=== PATIENT | female | born 2000 | race African-American/Black ===

== ENCOUNTER → 2021-06-28 12:39 | Outpatient (CLI) | payer OTHER, SELFPAY ==
--- NOTE | 2021-06-28 12:42 | DI.US.S_ITS ---
PROCEDURE: US OB <= 14 WEEKS FETUS INDICATIONS: DATING. LMP 04/20/21. OUTSIDE/PRIOR DATING DATA: Last menstrual period (LMP): 04/20/2021 LMP-based estimated date of delivery (AMY): 01/25/2022. First dating scan (date and location): 06/28/2021. Estimated date of delivery (AMY) from first dating scan: 01/26/2022. The calculations are made using the ultrasound AMY of 01/26/2022. TECHNIQUE: Real-time scanning was performed of the fetus and maternal pelvic organs, with image documentation. Endovaginal scanning was also performed to better visualize the fetus and maternal ovaries. COMPARISON: None. FINDINGS: Embryo: 2.9 cm crown-rump length corresponding to 9 weeks 5 days. Small perigestational sac bleed site measuring 1.2 x 1.0 x 1.6 cm. Complex heterogeneous left ovarian mass suspicious for a dermoid measuring up to 2.3 cm. Follow-up recommended. Heart rate: 163 Maternal organs: Complex heterogeneous mass present involving the left ovary suspicious for an ovarian dermoid measuring 2.3 x 1.3 x 1.2 cm. Small right corpus luteal cyst. IMPRESSION: 1. 9 week 5 day single living IUP. 2. Complex heterogeneous left ovarian mass suspicious for dermoid measuring up to 2.3 cm. Continued sonographic surveillance is recommended. We strive to produce accurate, complete, and clear reports of imaging services. To assist us in improving patient care, this report was composed using standard report templates and voice recognition software. Therefore, it may contain abnormal punctuation, insertions and/or omissions. Occasional wrong-word or sound-alike substitutions may occur. Though we review the report and make efforts to correct it, we do recommend that the report be read carefully in proper context to recognize any text inaccuracies. Dictated by: Ananda Rosario RRJim Interpreted: Henri Krishnamurthy MD on 06/29/2021 at 10:50 Transcribed by: JESSICA on 06/29/2021 at 10:53 Approved by: Henri Krishnamurthy M.D. on 06/29/2021 at 11:33
[2021-06-28 13:57] LABS: Appearance Urine UA CLEAR; Bilirubin Urine UA NEGATIVE (NEGATIVE); Color Urine UA YELLOW; Glucose Urine UA NEGATIVE (Negative); Ketones Urine UA NEGATIVE (NEGATIVE); Leukocyte Esterase Urine UA TRACE (NEGATIVE); Nitrite Urine UA NEGATIVE (Negative); Occult Blood Urine UA NEGATIVE (Negative); Protein Urine UA NEGATIVE (Negative); Specific Gravity Urine UA 1.015 (1.000-1.035); Urobilinogen Urine UA 0.2 E.U./dL (0.2)
[2021-06-28 13:58] LABS: Add Manual Diff / Slide Review NO; Basophils Absolute Auto 100 /uL (0-100); Basophils Percent Auto 0.6 % (0-2); Eosinophils Absolute Auto 200 /uL (0-450); Eosinophils Percent Auto 1.7 % (2-4); Hematocrit 38.2 % (36-46); Hemoglobin 12.5 g/dL (12.0-16.0); Lymphocytes Absolute Auto 3000 /uL (1100-4500); Lymphocytes Percent Auto 27.4 % (25-40); Mean Corpuscular HGB Conc 32.8 % (30-36); Mean Corpuscular Hemoglobin 27.1 PG (26-34); Mean Corpuscular Volume 82.5 fL (80-100); Monocytes Absolute Auto 900 /uL (0-900); Monocytes Percent Auto 7.8 % (3-14); Neutrophils Absolute Auto 6900 /uL (1500-7000); Neutrophils Percent Auto 62.5 % (50-75); Platelet Count 252 X10^3/uL (150-400); Red Blood Cell Count 4.63 X10^6/uL (4.0-5.2); Red Cell Distribution Width 18.6 % (11.6-14.8)
[2021-06-28 14:15] LABS: Amorphous Sediment Urine 1+; Bacteria Urine Occasional (0-1); RBC Urine None Seen (0-5/HPF); Squamous Epithelial Cell Urine 5-10 /HPF (0-5/HPF); WBC Urine 5-10/HPF (0-5/HPF)
[2021-06-28 15:27] LABS: Hepatitis B Surface Antigen NEGATIVE s/c (NEGATIVE)
[2021-06-28 15:37] LABS: HIV 1 & 2 Ab/Ag 4th Gen Combo NEGATIVE (NEGATIVE); Hep C Virus Ab w/Reflex Quant NEGATIVE s/c (NEGATIVE)
[2021-06-29 07:15] LABS: Varicella IgG Antibody 2304 index (Immune >165)
[2021-06-29 07:36] LABS: RPR Screen Non Reactive (Non Reactive)
== END ==
PROVIDERS: Referring Provider Family Medicine; Visit Provider Family Medicine
DX: O99.891 Other specified diseases and conditions complicating pregnancy (principal); N83.9 Noninflammatory disorder of ovary, fallopian tube and broad ligament, unspecified; Z3A.09 9 weeks gestation of pregnancy; Z36.87 Encounter for antenatal screening for uncertain dates
CPT/HCPCS: 36415; 76801; 76817; 80055; 81003; 81015; 86787; 86803; 86850; 86900; 86901; 87086; 87389

== ENCOUNTER → 2021-08-24 17:01 | Outpatient (CLI) | payer OTHER, SELFPAY ==
[2021-08-27 14:08] LABS: AFP, Serum 26.5 ng/mL (.); Calc Gestational Age Ultrasound (.); Estriol, Free 1.25 ng/mL (.); Inhibin A, Dimeric 89.95 pg/mL (.); Inhibin A, MoM 0.69 (.); Maternal Ethnicity Black (.); Maternal Weight 208 lbs (.); Number of Fetuses No (.); OSBR Risk 1 IN 10000 (.); Results Report (.); Test Results *Screen Negative* (.); hCG, Serum 9543 mIU/mL (.)
== END ==
PROVIDERS: Referring Provider Family Medicine; Visit Provider Family Medicine
DX: Z34.90 Encounter for supervision of normal pregnancy, unspecified, unspecified trimester (principal)
CPT/HCPCS: 36415; 82105; 82677; 84702; 86336

== ENCOUNTER → 2021-11-06 14:51 | Outpatient (CLI) | payer OTHER, SELFPAY ==
[2021-11-06 16:51] LABS: GTT (PREG) 1 Hour PP 50gm Dose 127 mg/dL (76-139)
== END ==
PROVIDERS: Referring Provider Family Medicine; Visit Provider Family Medicine
DX: Z34.92 Encounter for supervision of normal pregnancy, unspecified, second trimester (principal); Z3A.26 26 weeks gestation of pregnancy
CPT/HCPCS: 82950

== ENCOUNTER → 2021-12-26 16:50 | Outpatient (CLI) | payer OTHER, SELFPAY ==
[2021-12-27 13:21] LABS: Strep Grp B PCR NEG for Grp B Strep
== END ==
PROVIDERS: Visit Provider Obstetrics & Gynecology
DX: Z34.03 Encounter for supervision of normal first pregnancy, third trimester (principal); Z3A.36 36 weeks gestation of pregnancy
CPT/HCPCS: 87653

== ENCOUNTER 2022-01-09 07:59 | Inpatient (IN) | payer OTHER, SELFPAY ==
--- NOTE | 2022-01-09 08:51 | P.HPOB_ITS ---
OB HPI Date/Time Date of admission: 01/09/22 Date Patient Seen: 01/09/22 Time Patient Seen: 08:51 History of Present Condition Chief complaint: Spontaneous rupture membranes : 1 Para: 0 Estimated Date of Delivery: 01/26/22 Estimated Gestational Age (weeks): 37 Narrative: Ce Campos is a 21 year old female with spontaneous rupture membranes at 7:00 a.m. with some bleeding. History of Present care: good care, initiated at week # (10), number of visits (8) and pounds weight gain (46) Dating criteria: LMP confirmed by 1st trimester US Ultrasounds: normal mid trimester US Obstetrical complications: none Medical complications: none Preadmission Labs Blood type: O (+) positive -: Antibody screen: negative, GBS status: negative, HBsAG: negative, HIV: n egative and RPR/VDLR: negative -: Chlamydia screen: not detected and Gonorrhea screen: not detected -: Rubella: immune and Varicella: immune HCAB: negative Quad screen: Normal 1 hr GTT: 127 Evaluation Evaluation Baseline heart rate: 135 Variability: Moderate (11-25) monitor accelerations: Present Monitor Decelerations: Absent Contraction Frequency (minutes): 5 Uterine Contraction Intensity: Mild Category of Tracing: Reactive Status: Category l Dilation (cm): 1 Effacement (%): 50 station: -3 [facility] Medical History Anemia (~1998) Irregular heart beat Painful menstrual periods delivery (maternal condition) Recurrent UTI (~2019) Surgical History [place] teeth extracted Family History Mother Loud snoring Hypertension Father No problems noted. Grandmother Stillbirth of single fetus Hypertension Grandfather Diabetes mellitus Heart disease Grandmother Family history unknown Grandfather Family history unknown Sister Irregular heart beat Scoliosis Social History marital status: unmarried,living together number of children: 0 household members: spouse lives independently: Yes caregiver/support person: No pets and animals: No education level: college occupational status: employed current occupational exposures/hazards: No milvia/catholic: Denominational special milvia needs: No seatbelt use: always do you feel safe at home: Yes Smoking Status: Former smoker Tobacco: How many years used: 1 second hand exposure: No alcohol intake: former substance use type: does not use during the past year weight has: increased > 10 lbs well-balanced diet: about half the time daily servings fruits/ve-1 caffeine: No frequency: does not exercise Meds Home Medications and Allergies Home Medications Medication Instructions Recorded Confirmed Type prenat.vits,jonathan,upg-pyon-fngnw 1 tab PO DAILY 06/27/21 01/09/22 History hzigugudaq-zquzwvqiuwegx-jqoetjng 1 cap PO BID PRN headac #10 caps 11/16/21 01/09/22 Rx 50 mg-300 mg-40 mg capsule (Fioricet) metronidazole 0.75 % vaginal gel 1 appful vaginal BEDTIME 5 days 12/26/21 01/09/22 Rx #70 grams Allergies Allergy/AdvReac Type Severity Reaction Status Date / Time Penicillins Allergy Mild hives Verified 01/09/22 10:07 Review of Systems Review of Systems Narrative: Patient denies headaches, scotomata, epigastric pain. Spontaneous rupture membranes at 7:00 a.m.. Light vaginal bleeding. Good movement. Some mild back pain. OB Exam Narrative Exam Narrative: Patient initial blood pressure 156/94, repeat 150/75, pulse of 82, temperature 36.5? HEENT exam within normal limits. Lungs are clear to auscultation and pe rcussion. Heart is regular rate and rhythm no S3-S4 murmurs. Abdomen is gravid. Fetus is vertex. Extremities without edema and nontender. Objective Labs Result Diagrams: 01/09/22 09:15 01/09/22 09:15 Assessment and Plan Assessment and Plan Assessment and Plan narrative: 37 week 4 day with spontaneous rupture membranes. If contractions do not begin in the next few hours will start Pitocin augmentation. Anticipate vaginal delivery. Time Spent with Patient Total time spent with greater than 50% in coordination of care (as documented) at patient's floor/unit and/or counseling patient:: less than 15 minutes
[2022-01-09 09:19] LABS: Add Manual Diff / Slide Review NO; Basophils Absolute Auto 100 /uL (0-100); Basophils Percent Auto 0.5 % (0-2); Eosinophils Absolute Auto 200 /uL (0-450); Eosinophils Percent Auto 2.5 % (2-4); Hematocrit 38.2 % (36-46); Hemoglobin 12.8 g/dL (12.0-16.0); Lymphocytes Absolute Auto 2700 /uL (1100-4500); Lymphocytes Percent Auto 28.3 % (25-40); Mean Corpuscular HGB Conc 33.6 % (30-36); Mean Corpuscular Hemoglobin 29.2 PG (26-34); Mean Corpuscular Volume 86.6 fL (80-100); Monocytes Absolute Auto 1000 /uL (0-900); Monocytes Percent Auto 10.3 % (3-14); Neutrophils Absolute Auto 5700 /uL (1500-7000); Neutrophils Percent Auto 58.4 % (50-75); Platelet Count 201 X10^3/uL (150-400); Red Blood Cell Count 4.41 X10^6/uL (4.0-5.2); Red Cell Distribution Width 14.1 % (11.6-14.8); White Blood Cell Count 9.7 X10^3/uL (4.5-11.0)
[2022-01-09 09:31] LABS: Aspartate Aminotransferase 28 IU/L (14-36); BUN Creatinine Ratio 20.8 (6-22); Blood Urea Nitrogen 11 mg/dL (7-17); Estimated Glomerular Filt Rate > 60 mL/min (>60); Uric Acid 3.6 mg/dL (2.5-6.2)
[2022-01-09 09:32] LABS: COVID19 -Nasal RAPID Negative (Negative)
[2022-01-09 10:16] VITALS: BP 150/75
--- NOTE | 2022-01-09 12:21 | PM.OBPNLAB ---
Date/Time Date Patient Seen: 01/09/22 Time Patient Seen: 12:22 Pain Control Pain control: tolerating well Pelvic Exam Effacement (%): 50 station: -3 Amniotic membrane status: Ruptured Contractions Contractions on admission: irregular Monitor mode: External Contraction pattern: Irregular Contraction intensity: Mild Status status: Category l Heart Rate Baseline: 140 Monitor Accelerations: Present Monitor Decelerations: Absent Monitor Variability: Moderate Assessment and Plan Plan: begin patient augmentation Comments: Patient with rupture membranes for over 4 hours without onset of labor. Will begin Pitocin augmentation. After initial blood pressure readings elevated the subsequent blood pressures 150/75 and 151/80. PIH labs were negative.
[2022-01-09] MEDS: LACTATED RINGERS 1,000 ML 100 ML IV (13:15)
[2022-01-09] MEDS: OXYTOCIN PREMIX 30 UNIT/500 ML PLAST..BAG IV (13:16)
[2022-01-09 14:49] LABS: Protein (Total) Urine Random 35 mg/dL (0-12)
[2022-01-09] MEDS: FENT 2MCG/ML BUPIV 0.125% EPI 200 MCG/100 ML PLAST..BAG 12 MCG EPIDURAL (17:31)
[2022-01-09] MEDS: diphenhydrAMINE 50 MG/ML VIAL 25 MG IV (20:22)
--- NOTE | 2022-01-10 00:36 | PM.OBPNLAB ---
Date/Time Date Patient Seen: 01/10/22 Time Patient Seen: 00:36 Pain Control Pain control: epidural Pelvic Exam Dilation (cm): 7 Effacement (%): 100 station: -1 Amniotic membrane status: Ruptured Contractions Contractions on admission: regular Monitor mode: Internal Pitocin rate (mU/min): 3 Contraction frequency (min): 3 Contraction duration (min): 1 Contraction pattern: Regular Contraction intensity: Strong/Firm Intrauterine tone measurement: 50 Status status: Category ll Heart Rate Baseline: 150 Monitor Accelerations: Present Monitor Decelerations: Early Monitor Variability: Minimal Assessment and Plan Assessment: induction ongoing Comments: Internal toco and scalp electrode placed. Significant progress in the last hour.
[2022-01-10] MEDS: LIDOCAINE 2% INJ MDV 20 ML (03:42)
--- NOTE | 2022-01-10 04:23 | P.PCNOB_ITS ---
Events: Labor Augmentation and Premature Rupture Membrane Labor & Delivery Delivery date: 01/10/22 Intrapartal Events: Extended Tachycardia Delivery augmentation: pitocin Delivery monitor: external FHT, external uterine, internal FHT and internal uterine Route of delivery: vacuum extraction Indication for instrumentation: nonreassuring FHR tracing L&D Laceration Description: Perineal - 3rd Degree Delivery repair: vicryl (2-0) and chromic (3-0) Estimated blood loss (mL): 900 Anesthesia Type: Epidural Narrative: Patient arrived on Labor and delivery after spontaneous rupture membranes. She did not go into labor so she was started on Pitocin. She received an epidural catheter for pain control. heart tones category 1 to category 2 throughout labor. With pushing the fetus was having tachycardia and late decel erations. Mother had exhaustion. Decision was made to proceed with vacuum extraction. The vacuum was placed for a total of 2 contractions with delivery of the viable male . There was a 2 minute shoulder dystocia. The dystocia was relieved with corkscrew maneuver. The infant was placed on maternal abdomen. After the cord stopped pulsating the cord was clamped, cut, and cord bloods obtained. The placenta delivered spontaneously, intact, with 3 vessels. Patient with shunt was found to have a partial third-degree tear which was repaired with 0 Vicryl suture deep and yjmgdi-mr-poulo sutures reapproximating the rectal sphincter. The rest of the repair was done with 3-0 chromic suture in the usual 2 layer fashion. Estimated blood loss 900 cc. Bleeding was from the tear rather than uterine atony. Both mother doing well. [place] Baby 1: gender: Male Presentation: vertex Position: Left Occiput Anterior Placenta delivery description: Spontaneous Cord Vessel Description: 3 Vessels score (1 min): 5 score (5 min): 8 score (10 min): 9 weight: 9 lb 5 oz Plan for aftercare: Routine care
[2022-01-10] MEDS: LACTATED RINGERS 1,000 ML 100 ML IV (08:04)
[2022-01-10] MEDS: DERMOPLAST SPRAY 20% 60 ML 1 SPRAY TOP (08:13)
[2022-01-10] MEDS: LANOLIN OINT 7 GM 1 APPLIC TOP ×2 (08:14→19:45)
[2022-01-10] MEDS: DOCUSATE 100 MG CAPSULE PO ×2 (12:22→19:44)
[2022-01-10 12:25] VITALS: TEMP 36.8
[2022-01-10] MEDS: ACETAMINOPHEN 325 MG TABLET 650 MG PO ×2 (12:25→19:29)
[2022-01-11] MEDS: ACETAMINOPHEN 325 MG TABLET 650 MG PO ×3 (00:26→16:14)
[2022-01-11 06:11] LABS: Add Manual Diff / Slide Review NO; Basophils Absolute Auto 100 /uL (0-100); Basophils Percent Auto 0.4 % (0-2); Eosinophils Absolute Auto 200 /uL (0-450); Eosinophils Percent Auto 1.2 % (2-4); Hematocrit 27.6 % (36-46); Hemoglobin 9.2 g/dL (12.0-16.0); Lymphocytes Absolute Auto 4100 /uL (1100-4500); Lymphocytes Percent Auto 20.6 % (25-40); Mean Corpuscular HGB Conc 33.3 % (30-36); Mean Corpuscular Volume 87.2 fL (80-100); Monocytes Absolute Auto 1600 /uL (0-900); Monocytes Percent Auto 8.1 % (3-14); Neutrophils Absolute Auto 13900 /uL (1500-7000); Neutrophils Percent Auto 69.7 % (50-75); Platelet Count 153 X10^3/uL (150-400); Red Blood Cell Count 3.17 X10^6/uL (4.0-5.2); Red Cell Distribution Width 14.6 % (11.6-14.8); White Blood Cell Count 19.9 X10^3/uL (4.5-11.0)
[2022-01-11 08:28] VITALS: TEMP 36.5
[2022-01-11] MEDS: IBUPROFEN 600 MG TABLET PO ×2 (08:28→16:15)
[2022-01-11 08:29] VITALS: TEMP 36.5
[2022-01-11] MEDS: DOCUSATE 100 MG CAPSULE PO ×2 (08:30→20:30)
--- NOTE | 2022-01-11 14:41 | P.PNOB_ITS ---
Subjective - OB Subjective Patient comments: no complaints and pain well controlled (Perineal discomfort overall controlled, just more sore when she is directly sitting on the area.) [place] baby status: doing well [place] feeding status: exclusively breast feeding Date Patient Seen: 01/11/22 Time Patient Seen: 14:56 Exam Vital Signs (past 8 hours): - 01/11/22 08:28 01/11/22 08:29 Temperature 97.7 F 97.7 F Narrative Exam Narrative: General: ?Well-appearing female Abdomen: ?Soft, nontender, nondistended. ?Fundus at U, firm, nontender Extremities: ?1+ bilateral pedal edema. No calf tenderness Const General: cooperative, healthy appearing and comfortable Objective Labs Result Diagrams: 01/11/22 05:58 01/09/22 09:15 Labs: Laboratory Results - last 24 hr 01/11/22 05:58 WBC 19.9 H D RBC 3.17 L Hgb 9.2 L Hct 27.6 L MCV 87.2 MCH 29.0 MCHC 33.3 RDW 14.6 Plt Count 153 Neut % (Auto) 69.7 Lymph % (Auto) 20.6 L [place] % (Auto) 8.1 Eos % (Auto) 1.2 L Baso % (Auto) 0.4 Neut # (Auto) 70029 H Lymph # (Auto) 4100 [place] # (Auto) 1600 H Eos # (Auto) 200 Baso # (Auto) 100 Assessment & Plan Plan day: 1 plan OB: routine care Time Spent With Patient Time: Total time spent is greater than 50% in coordination of care (as documented) at patient's floor/unit and/or counseling patient: Time with patient: less than 15 minutes
[2022-01-11 16:14] VITALS: TEMP 37
[2022-01-11 16:15] VITALS: TEMP 37
[2022-01-11] MEDS: OXYCODONE IR 5 MG TABLET PO (19:51)
[2022-01-12] MEDS: OXYCODONE IR 5 MG TABLET PO ×3 (00:19→13:27)
[2022-01-12] MEDS: IBUPROFEN 600 MG TABLET PO (09:13)
[2022-01-12] MEDS: DOCUSATE 100 MG CAPSULE PO (09:13)
--- NOTE | 2022-01-12 11:47 | PM.OBPN.1 ---
Subjective - OB Subjective Patient comments: no complaints, pain well controlled (Perineal discomfort from third-degree perineal discomfort controlled with ice packs, ibuprofen and rare oxycodone use. ) and other (Lochia normal. Breast feeding and supplementing to maintain baby's blood sugar. Her breast milk is coming in well.) Date Patient Seen: 01/12/22 Time Patient Seen: 11:58 Exam Vital Signs (past 8 hours): Temp 97.5F, BP 130/72, pulse 95, RR 16 Narrative Exam Narrative: General: ?Well-appearing female Abdomen: ?Soft, nontender, nondistended. ?Fundus U-1, firm, nontender Extremities: ?1+ pedal edema, right mildly more than left side, both decreasing per patient from prior to delivery. No calf tenderness. Objective Labs Result Diagrams: 01/11/22 05:58 01/09/22 09:15 Assessment & Plan Plan day: 2 plan OB: discharge home and follow up 6 weeks Comments: Routine instructions reviewed. Signs and symptoms of depression discussed, and to call as needed prior to 6 week visit. Time Spent With Patient Time: Total time spent is greater than 50% in coordination of care (as documented) at patient's floor/unit and/or counseling patient: Time with patient: less than 15 minutes
[2022-01-12 12:57] VITALS: BP 130/72; PULSE 96; RESP 16; TEMP 36.4
== END 2022-01-12 15:55 | disposition home or self-care (01) | DRG 768 ==
PROVIDERS: Admitting Provider Specialist; Referring Provider Specialist; Visit Provider Specialist
DX: O42.02 Full-term premature rupture of membranes, onset of labor within 24 hours of rupture (principal); Z37.0 Single live birth; O70.20 Third degree perineal laceration during delivery, unspecified; Z3A.37 37 weeks gestation of pregnancy; O76 Abnormality in fetal heart rate and rhythm complicating labor and delivery; O66.0 Obstructed labor due to shoulder dystocia; Z20.822 Contact with and (suspected) exposure to COVID-19
CPT/HCPCS: 01967; 36415; 59050; 59400; 59409; 82570; 84112; 84156; 84450; 84550; 85025; 86850; 86900; 86901; 87635; C9803; G0379; J1200; J2590

== ENCOUNTER 2023-05-26 17:10 | Emergency (ER) | payer OTHER, SELFPAY ==
[2023-05-26 17:33] VITALS: BP 156/60; PULSE 82; RESP 16; TEMP 36.9; O2SAT 99; BMI 34.8
--- NOTE | 2023-05-26 18:17 | ED_ITS ---
HPI - Back Pain/Injury <Serenity Peters PA-C - Last Filed: 05/26/23 18:52> General Chief Complaint: Back Pain/Injury Stated Complaint: Severe back pain, cyst Time Seen by Provider: 05/26/23 17:41 History of Present Illness HPI Narrative: 22-year-old female with past medical history chronic lower back pain, diabetes presents to the ED with 1 day of acute exacerbation of the lower back pain. Patient states that she moved and rearranged a lot of her furniture yesterday, was vacuuming this morning when she felt a twinge in her back gave out. Patient is complaining of left-sided lower back pain with pain radiating down the front of her left leg. Patient denies numbness, tingling, weakness, saddle paresthesias, urinary hesitancy, urinary frequency, dysuria, urinary incontinence, bowel incontinence, lightheadedness, dizziness, syncope. Related Data Home Medications Medication Instructions Recorded Confirmed prenat.vits,jonathan,rdr-kdzh-ivyhx 1 tab PO DAILY 06/27/21 01/09/22 Previous Rx's Medication Instructions Recorded ibuprofen 600 mg tablet 600 mg PO Q6HR PRN Pain, Mild 01/12/22 (1-3) #30 tabs lanolin (Purelan topical cream) 1 applic topical PRN PRN 01/12/22 Tenderness #7 grams norethindrone (contraceptive) 0.35 0.35 mg PO DAILY #84 tabs 02/19/22 mg tablet (Yu-BE) cyclobenzaprine 10 mg tablet 10 mg PO TID PRN muscle spasm 5 05/26/23 days #15 tabs Allergies Allergy/AdvReac Type Severity Reaction Status Date / Time Penicillins Allergy Mild hives Verified 05/26/23 17:37 Review of Systems <Serenity Peters PA-C - Last Filed: 05/26/23 18:52> Constitutional Constitutional: Denies chills, Denies fatigue, Denies fever(s), Denies frequent falls, Denies lethargy and Denies weakness Eyes Eyes: Denies change in vision, Denies eye discharge, Denies irritation and Denies loss of vision ENT Ears, Nose, Mouth, and Throat: Denies change in voice, Denies dizziness, Denies neck pain, Denies sore throat and Denies throat swelling Cardiovascular Cardiovascular: Denies chest pain, Denies irregular heart rhythm, Denies lightheadedness, Denies palpitations, Denies dyspnea, Denies dyspnea on exertion and Denies orthopnea Respiratory Respiratory: Denies cough, Denies dyspnea, Denies dyspnea on exertion and Denies wheezing Gastrointestinal Gastrointestinal: Denies abdominal pain, Denies change in bowel habits, Denies diarrhea, Denies nausea and Denies vomiting Musculoskeletal Musculoskeletal: Reports back pain, Denies neck pain, Denies numbness and Reports radiating pain into limb Integumentary/Breasts Skin/Breast: Denies pruritus, Denies erythema, Denies rash and Denies wounds Neurologic Neurologic: Denies behavioral changes, Denies confusion, Denies dizziness, Denies frequent falls, Denies loss of vision, Denies numbness and Denies weakness Psychiatric Psychiatric: Denies anxiety, Denies behavioral changes, Denies confusion, Denies depression, Denies homicidal ideation and Denies suicidal ideation Endocrine Endocrine: Denies fatigue, Denies flushing and Denies palpitations Hematologic/Lymphatic Hematologic/Lymphatic: Denies easy bruising Allergic/Immunologic Allergic/Immunologic: Denies urticaria, Denies throat swelling and Denies wheezing Patient History <Serenity Peters PA-C - Last Filed: 05/26/23 18:52> Medical History Contraception management Irregular heart beat Recurrent UTI (~2019) Painful menstrual periods delivery (maternal condition) Anemia (~1998) Surgical History [place] teeth extracted Family History Mother Loud snoring Hypertension Father No problems noted. Grandmother Stillbirth of single fetus Hypertension Grandfather Diabetes mellitus Heart disease Grandmother Family history unknown Grandfather Family history unknown Sister Irregular heart beat Scoliosis Social History marital status: unmarried,living together number of children: 0 household members: spouse lives independently: Yes caregiver/support person: No pets and animals: No education level: college occupational status: employed current occupational exposures/hazards: No milvia/restorationism: Anglican special milvia needs: No seatbelt use: always do you feel safe at home: Yes Smoking Status: Former smoker Tobacco: How many years used: 1 second hand exposure: No alcohol intake: former substance use type: does not use during the past year weight has: increased > 10 lbs well-balanced diet: about half the time daily servings fruits/ve-1 caffeine: No frequency: does not exercise Smoking Status: Former smoker tobacco type: e-cigarettes Substance Use Type: does not use Exam <BYRON Zheng Last Filed: 05/26/23 18:52> Narrative Exam Narrative: Const General:?cooperative, healthy appearing and comfortable [facility] Head:?normal to inspection Ears:?hearing grossly normal bilaterally Nose:?external nose normal Face and sinus:?normal facial exam and sinuses nontender Mouth:?oral mucosae normal Throat:?posterior oropharynx normal Eyes General:?appearance normal, both eyes and all related structures Neck Neck:?normal visual inspection and no lymphadenopathy noted Resp Effort & Inspection:?normal respiratory effort Auscultation:?clear to auscultation bilaterally Cardio Rate:?regular rate Rhythm:?regular rhythm Musculoskeletal No midline tenderness to palpation. No paraspinal tenderness to palpation. Patient's movement is guarded due to the back pain. Gait is normal. Patient neurovascularly intact. Neuro General:?patient alert, patient awake and patient oriented x3 Initial Vital Signs Initial Vital Signs: Vital Signs Temperature 98.4 F 05/26/23 17:33 Pulse Rate 82 05/26/23 17:33 Respiratory Rate 16 05/26/23 17:33 Blood Pressure 156/60 H 05/26/23 17:33 Pulse Oximetry 99 05/26/23 17:33 Oxygen Delivery Method Room Air 05/26/23 17:33 <Sherita Lau DO - Last Filed: 05/26/23 18:59> Initial Vital Signs Initial Vital Signs: Vital Signs Temperature 98.4 F 05/26/23 17:33 Pulse Rate 82 05/26/23 17:33 Respiratory Rate 16 05/26/23 17:33 Blood Pressure 156/60 H 05/26/23 17:33 Pulse Oximetry 99 05/26/23 17:33 Oxygen Delivery Method Room Air 05/26/23 17:33 Course <BYRON Zheng Last Filed: 05/26/23 18:52> Orders Ordered: Discontinued Medications Cyclobenzaprine HCl (Cyclobenzaprine 10 Mg Tablet) 10 mg PO NOW ONE Stop: 05/26/23 18:27 Last Admin: 05/26/23 18:41 Dose: 10 mg Documented By: RB Ketorolac Tromethamine (Ketorolac 30 Mg/Ml Vial) 30 mg IM NOW ONE Stop: 05/26/23 18:27 Last Admin: 05/26/23 18:41 Dose: 30 mg Documented By: RB Lidocaine (Lidocaine Patch 1 Each Adh..Patch) 1 each TOP NOW ONE Stop: 05/26/23 18:27 Last Admin: 05/26/23 18:48 Dose: 1 each Documented By: SB Vital Signs Vital signs: Vital Signs - 8 hr 05/26/23 17:33 05/26/23 18:37 Temperature 98.4 F Pulse Rate 82 80 Respiratory Rate 16 Blood Pressure 156/60 H 118/62 Pulse Oximetry 99 99 Oxygen Delivery Method Room Air Room Air <Sherita Lau DO - Last Filed: 05/26/23 18:59> Orders Ordered: Discontinued Medications Cyclobenzaprine HCl (Cyclobenzaprine 10 Mg Tablet) 10 mg PO NOW ONE Stop: 05/26/23 18:27 Last Admin: 05/26/23 18:41 Dose: 10 mg Documented By: RB Ketorolac Tromethamine (Ketorolac 30 Mg/Ml Vial) 30 mg IM NOW ONE Stop: 05/26/23 18:27 Last Admin: 05/26/23 18:41 Dose: 30 mg Documented By: RB Lidocaine (Lidocaine Patch 1 Each Adh..Patch) 1 each TOP NOW ONE Stop: 05/26/23 18:27 Last Admin: 05/26/23 18:48 Dose: 1 each Documented By: SB Vital Signs Vital signs: Vital Signs - 8 hr 05/26/23 17:33 05/26/23 18:37 Temperature 98.4 F Pulse Rate 82 80 Respiratory Rate 16 Blood Pressure 156/60 H 118/62 Pulse Oximetry 99 99 Oxygen Delivery Method Room Air Room Air MDM - Back Pain/Injury <Serenity Peters PA-C - Last Filed: 05/26/23 18:52> MDM Narrative Medical decision making narrative: 22-year-old female with past medical history chronic lower back pain, diabetes presents to the ED with 1 day of acute exacerbation of the lower back pain. Patient's symptoms are most consistent with an acute on chronic exacerbation of her chronic lower back pain. Will treat with ketorolac, lidocaine patch and Flexeril in the ED. Will prescribed Flexeril for use as needed. Recommend continued use of lidocaine patches, Advil, heat packs as well. Recommend follow-up with PCP as soon as possible. ED return precautions discussed with patient. Patient verbalized understanding. Medical records reviewed: Yes Discharge Plan Departure Patient Disposition: Home Clinical Impression: Low back pain Qualifiers: Chronicity: acute Back pain laterality: left Sciatica presence: with sciatica Sciatica laterality: sciatica of left side Qualified Code(s): M54.42 - Lumbago with sciatica, left side Instructions: DI for Back Pain With Sciatica Activity Restrictions/Additional Instructions: You were evaluated in the ED today for lower back pain. Your symptoms are most consistent with an exacerbation of your chronic lower back pain due to your recent exertion. You were given an injection of Toradol and some Flexeril for your symptoms in the ED. You were also being prescribed Flexeril to take at home as needed. Please also continue to take ibuprofen 600 mg 3 times a day with food. You may also apply lidocaine patches at home which are available at the drug store. Applying heat packs can also be helpful for lower back pain. Please follow-up with your PCP for further evaluation and monitoring. Return to the ED if you have worsening symptoms, numbness, tingling, weakness, urinary difficulties. Prescriptions: New cyclobenzaprine 10 mg tablet 10 mg PO TID PRN (Reason: muscle spasm) 5 Days Qty: 15 0RF No Action prenat.vits,jonathan,aoq-pfol-ahtyr Tablet 1 tab PO DAILY norethindrone (contraceptive) [Yu-BE] 0.35 mg tablet 0.35 mg PO DAILY Qty: 84 3RF ibuprofen 600 mg Tablet 600 mg PO Q6HR PRN (Reason: Pain, Mild (1-3)) Qty: 30 0RF Purelan Cream 1 applic topical PRN PRN (Reason: Tenderness) Qty: 7 0RF Referrals: Miscellaneous,Doctor, MD [Primary Care Provider] - Stand Alone Forms: Patient Portal/API, Work Release Note ED Sign-out <Sherita Lau DO - Last Filed: 05/26/23 18:59> Cosign ED Attending Cosignature Attestation: I was available for consultation.
[2023-05-26 18:37] VITALS: BP 118/62; PULSE 80; O2SAT 99
[2023-05-26] MEDS: KETOROLAC 30 MG/ML VIAL IM (18:41)
[2023-05-26] MEDS: CYCLOBENZAPRINE 10 MG TABLET PO (18:41)
[2023-05-26] MEDS: LIDOCAINE PATCH 1 EACH ADH..PATCH TOP (18:48)
== END 2023-05-26 18:57 | disposition home or self-care (01) ==
PROVIDERS: Emergency Provider Student in an Organized Health Care Education/Training Program
DX: M54.42 Lumbago with sciatica, left side (principal)
CPT/HCPCS: 96372; 99283; J1885

== ENCOUNTER → 2024-02-06 17:57 | Outpatient (ROUT) | payer OTHER, MEDICAID, SELFPAY ==
[2024-02-06 18:36] LABS: Creatinine Urine Random 293.25 mg/dL
[2024-02-06 18:42] LABS: Microalbumin Urine Random 1.1 mg/dL (0-1.6)
== END ==
PROVIDERS: PCP Family Medicine; Visit Provider Family Medicine
DX: E11.9 Type 2 diabetes mellitus without complications (principal)
CPT/HCPCS: 82043; 82570

== ENCOUNTER → 2024-03-28 14:20 | Outpatient (CLI) | payer OTHER, MEDICAID, SELFPAY ==
--- NOTE | 2024-03-28 14:24 | DI.MRI.S_ITS ---
PROCEDURE: MR LUMBAR SPINE WO CON INDICATIONS: chronic low back pain with left side sciatica TECHNIQUE: Noncontrast sagittal T1 spin echo and T2 fast echo, sagittal STIR, and T2 fast spin echo through the lumbar spine. In cases with scoliosis, additional coronal T2 fast spin echo may be performed. COMPARISON: None. FINDINGS: Image quality: Excellent. Alignment and Curvature: There is normal bony alignment. Bone Marrow: Marrow is of normal overall signal. No acute vertebral body compression fractures. Spinal Cord: Conus medullaris terminates at the L1 level. Visualized cord demonstrates normal signal and size. Paraspinous Soft Tissues: No paravertebral masses. T12-L1: Normal appearance. L1-L2: Normal appearance. L2-L3: Normal appearance. L3-L4: Normal appearance. L4-L5: Bilateral facet arthrosis is seen. Mild diffuse disc bulge is seen with mild left-sided neural foraminal narrowing. L5-S1: Disc desiccation is signal is seen. Diffuse disc bulge and left worse than right bilateral facet arthrosis. No significant central canal stenosis. Moderate to severe left-sided neural foraminal narrowing is seen. There is compression of left L5 nerve root. IMPRESSION: 1. Diffuse disc bulge and left worse than right bilateral facet arthrosis causing moderate to severe left-sided neural foraminal narrowing. No significant central canal stenosis. 2. Mild diffuse disc bulge at L4-5 level with mild left-sided neural foraminal narrowing. No significant central canal stenosis. 3. No marrow edema. No acute compression fracture or spondylolisthesis. Dictated by: Henri Krishnamurthy M.D. on 03/29/2024 at 14:46 Approved by: Henri Krishnamurthy M.D. on 03/29/2024 at 14:50
== END ==
LOC: MRI 14:21
PROVIDERS: PCP Family Medicine; Referring Provider Family Medicine; Visit Provider Family Medicine
DX: M51.16 Intervertebral disc disorders with radiculopathy, lumbar region (principal); M51.17 Intervertebral disc disorders with radiculopathy, lumbosacral region; M47.26 Other spondylosis with radiculopathy, lumbar region; M47.27 Other spondylosis with radiculopathy, lumbosacral region; M48.061 Spinal stenosis, lumbar region without neurogenic claudication; M48.07 Spinal stenosis, lumbosacral region; G89.29 Other chronic pain
CPT/HCPCS: 72148

== ENCOUNTER 2024-07-17 21:04 | Emergency (ER) | payer OTHER, SELFPAY ==
[2024-07-17 21:08] VITALS: BP 126/60; PULSE 87; RESP 20; TEMP 36.8; O2SAT 100; BMI 36.1
--- NOTE | 2024-07-17 21:21 | EKG_ITS ---
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
--- NOTE | 2024-07-18 00:44 | ED_ITS ---
HPI - General Adult General Chief complaint: Dizziness Stated complaint: dizziness, migraine, DM type II, 7 wks Time Seen by Provider: 07/18/24 00:44 Source: patient and family Mode of arrival: Ambulatory History of Present Illness HPI narrative: 23-year-old female currently , SAB 1 history, EDC 03/03/2025, which calculates today to EGA of 7w4d, current care through Dr. Post, history of migraine headaches prepregnancy, some nausea and retching recent, frontal headache without trauma since yesterday evening. Some dizziness. No double vision. No focal weakness to face arm or leg. Has complaint of generalized weakness. No treatments tried thus far. Had brief left anterior lateral chest discomfort resolved without specific treatment. Related Data Home Medications Medication Instructions Recorded Confirmed vitamin-ferrous sulfate tab PO 07/12/24 07/12/24 27 mg iron-folic acid 0.8 mg tablet Previous Rx's Medication Instructions Recorded metformin 500 mg tablet 500 mg PO BIDWMEAL #180 tabs 01/06/24 dulaglutide 0.75 mg/0.5 mL 0.75 mg (0.5 mL) SUBCUT QWEEK #2 mL 06/15/24 subcutaneous pen injector (Trulicity) Allergies Allergy/AdvReac Type Severity Reaction Status Date / Time Penicillins Allergy Mild hives Verified 07/12/24 13:05 Patient History Medical History (Updated 07/18/24 @ 02:16 by Jesús Castaneda MD) Spontaneous miscarriage (~11/2023) Diabetes mellitus type 2, controlled Vaginal delivery (~01/10/22) Recurrent UTI (~2019) Painful menstrual periods delivery (maternal condition) Surgical History (Updated 07/12/24 @ 13:13 by Marta Elizabeth RN) [place] teeth extracted Family History (Updated 07/12/24 @ 13:17 by Marta Elizabeth RN) Mother Loud snoring Hypertension Diabetes mellitus Father Family estrangement Grandmother Stillbirth of single fetus Hypertension Grandfather Diabetes mellitus Heart disease Grandmother Family history unknown Grandfather Family history unknown Sister Scoliosis Heart murmur Social History marital status: number of children: 1 household members: spouse and children lives independently: Yes caregiver/support person: No housing: condominium (base housing) pets and animals: No education level: college (some college) 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 (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) milvia/mormonism: Worship special milvia needs: No travel history: recent (domestic/[place] only) seatbelt use: always water heater temp set < 120 deg: Yes working smoke detector in home: Yes fire extinguisher in home: Yes carbon monox detector in home: Yes firearms in home: No do you feel safe at home: Yes Smoking Status: Current some day smoker Tobacco: How many years used: 1 quit status: considering quitting second hand exposure: Yes ( also vapes but is also trying to quit) alcohol intake: former (quit drinking when she got out of the ) substance use type: does not use during the past year weight has: other (fluctuated quite a bit) well-balanced diet: rarely or never daily servings fruits/ve-1 caffeine: No 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 HEAD: Atraumatic. Normocephalic. EYES: Pupils equal round and reactive. Extraocular motions intact. No scleral icterus. No injection or drainage. ENT: Nose without bleeding, purulent drainage. Throat without erythema, tonsillar hypertrophy or exudate. Airway patent. NECK: Trachea midline. Non tender CARDIOVASCULAR: Regular rate and rhythm without murmurs, gallops, or rubs. RESPIRATORY: Clear to auscultation. Breath sounds equal bilaterally. No wheezes, rales, or rhonchi. GASTROINTESTINAL: Abdomen soft, non-tender, nondistended. EXTREMITIES: No edema or joint tenderness. BACK: Nontender without deformity or crepitance. No flank tenderness. NEURO: AOx3. Motor functions grossly nonfocal SKIN: No rash or erythema of visible areas Initial Vital Signs Initial Vital Signs: Vital Signs Temperature 98.3 F 07/17/24 21:08 Pulse Rate 87 07/17/24 21:08 Respiratory Rate 20 07/17/24 21:08 Blood Pressure 126/60 07/17/24 21:08 Pulse Oximetry 100 07/17/24 21:08 Oxygen Delivery Method Room Air 07/17/24 21:08 Course Orders Ordered: ED Orders 07/17/24 21:21 EKG-12 Lead Stat 07/18/24 01:00 XR chest 1V Stat EKG-12 Lead Stat 07/18/24 01:05 Covid-19 + FLU A/B + RSV - PCR Stat 07/18/24 01:15 Complete Blood Count AUTO DIFF Stat Comprehensive Metabolic Panel Stat Lipase Stat Troponin & CK Cardiac Panel Stat 07/18/24 01:49 Urinalysis and Microscopic Stat Discontinued Medications Acetaminophen (Acetaminophen 325 Mg Tablet) 975 mg PO NOW ONE Stop: 07/18/24 01:02 Last Admin: 07/18/24 01:22 Dose: 975 mg Documented By: CLARK Sodium Chloride (Normal Saline 0.9%) 1,000 mls @ 1,000 mls/hr IV BOLUS ONE Stop: 07/18/24 02:00 Last Infusion: 07/18/24 02:33 Dose: Infused Documented By: Admin: 07/18/24 01:22 Dose: 1,000 mls/hr Documented By: CLARK Ondansetron HCl (Ondansetron 4 Mg/2 Ml Inj) 4 mg IV NOW ONE Stop: 07/18/24 02:15 Last Admin: 07/18/24 02:26 Dose: 4 mg Documented By: CLARK Vital Signs Vital signs: Vital Signs - 8 hr 07/18/24 00:50 07/18/24 00:50 07/18/24 01:00 Pulse Rate 84 Respiratory Rate Blood Pressure 121/42 L 109/53 L Pulse Oximetry 99 Oxygen Delivery Method 07/18/24 01:00 07/18/24 02:28 07/18/24 02:28 Pulse Rate 84 84 Respiratory Rate 18 Blood Pressure 110/57 L Pulse Oximetry 99 98 Oxygen Delivery Method Room Air Medical Decision Making Lab Data Lab results reviewed: Yes I reviewed the patient's lab results. Lab results narrative: White blood cell count 98007, hemoglobin 11.6, platelets adequate. BNP unremarkable. Liver functions and lipase normal. Troponin negative/unmeasurable. Urine dip negative 07/18/24 01:15 07/18/24 01:15 Labs: Lab Results 07/17/24 07/18/24 07/18/24 Range/Units 21:25 01:05 01:15 WBC 16.0 H (4.5-11.0) X10^3/uL RBC 4.41 (4.0-5.2) X10^6/uL Hgb 11.6 L (12.0-16.0) g/dL Hct 36.1 (36-46) % MCV 81.7 (80-100) fL MCH 26.3 (26-34) PG MCHC 32.2 (30-36) % RDW 18.2 H (11.6-14.8) % Plt Count 344 (150-400) X10^3/uL Neut % (Auto) 60.2 (50-75) % Lymph % (Auto) 30.8 (25-40) % [place] % (Auto) 6.4 (3-14) % Eos % (Auto) 1.8 L (2-4) % Baso % (Auto) 0.8 (0-2) % Neut # (Auto) 9700 H (6312-2208) /uL Lymph # (Auto) 4900 H (0972-2588) /uL [place] # (Auto) 1000 H (0-900) /uL Eos # (Auto) 300 (0-450) /uL Baso # (Auto) 100 (0-100) /uL Sodium 134 L (137-145) mmol/L Potassium 3.4 (3.4-5.1) mmol/L Chloride 102 (98-107) mmol/L Carbon Dioxide 26 (22-32) mmol/L BUN 10 (7-17) mg/dL Creatinine 0.52 (0.52-1.04) mg/dL Estimated GFR > 60 (>60) mL/min BUN/Creatinine Ratio 19.2 (6-22) Glucose 131 H (70-100) mg/dL Calcium 9.1 (8.4-10.2) mg/dL Total Bilirubin 0.3 (0.2-1.3) mg/dL AST 22 (14-36) IU/L ALT 22 (<35) IU/L Alkaline Phosphatase 98 (38-126) U/L Total Creatine Kinase 148 H (30-135) U/L Troponin I < 0.012 (0.01-0.034) ng/mL Total Protein 7.4 (6.3-8.2) g/dL Albumin 4.0 (3.5-5.0) g/dL Globulin 3.4 (1.7-4.1) g/dL Albumin/Globulin Ratio 1.2 (1.0-2.8) Lipase 56 (23-300) U/L Urine Color Yellow Urine Appearance Clear Urine pH 6.5 (4.5-8.0) Ur Specific [place] <=1.005 (1.000-1.035) Urine Protein Negative (Negative) Urine Glucose (UA) Negative (Negative) g/dL Urine Ketones Negative (NEGATIVE) Urine Occult Blood Negative (Negative) Urine Nitrate Negative (Negative) Urine Bilirubin Negative (NEGATIVE) Urine Urobilinogen 0.2 (0.2) E.U./dL Ur Leukocyte Esterase Negative (NEGATIVE) Urine RBC None seen (0-5/HPF) Urine WBC None seen (0-5/HPF) Ur Squamous Epith Cells 1-5 /hpf (0-5/HPF) Urine Bacteria Occasional (0-1) (None) Ur Culture Indicated? Cult not indicated Vol Urine Centrifuged 10ml (spun) SARS-CoV-2 (PCR) Negative (Negative) Influenza A (RT-PCR) Flu a negative (NEGATIVE) Influenza B (RT-PCR) Flu b negative (NEGATIVE) RSV (PCR) Negative (Negative) Urine Dip Bedside Urine Glucose Negative Bedside Urine Bilirubin - Negative Bedside Urine Ketone - Negative Urine Specific [place] 1.005 Bedside Urine Occult Blood - Negative Bedside Urine pH 6 Bedside Urine Protein - Negative Bedside Urine Urobilinogen - Negative Bedside Urine Nitrite - Negative Bedside Urine Leukocytes - Negative Esterase Point of care testing: Urine Dip Bedside Urine Glucose Negative Bedside Urine Bilirubin - Negative Bedside Urine Ketone - Negative Urine Specific [place] 1.005 Bedside Urine Occult Blood - Negative Bedside Urine pH 6 Bedside Urine Protein - Negative Bedside Urine Urobilinogen - Negative Bedside Urine Nitrite - Negative Bedside Urine Leukocytes - Negative Esterase Imaging Data Chest x-ray: Radiologist's Impression: [address] [address] XRay Report Signed Patient: Ce Campos MR#: [id number] : 2000 Acct:[id number] Age/Sex: 23 / F Date of Service: 07/18/24 Loc: ED Accession Number: [id number] Procedure: XR chest 1V Ordering Provider: Jesús Castaneda MD PROCEDURE: XR CHEST 1V INDICATIONS: chest pain TECHNIQUE: One view of the chest was acquired. COMPARISON: None. FINDINGS: Surgical changes and devices: None. Lungs and pleura: Lungs are clear. No pleural effusions or pneumothorax. Mediastinum: Mediastinal contours appear normal. Heart size is normal. Bones and chest wall: No suspicious bony lesions. Overlying soft tissues appear unremarkable. IMPRESSION: No acute cardiopulmonary abnormality is seen. Dictated by: Lia Cooper M.D. on 07/18/2024 at 1:45 Approved by: Lia Cooper M.D. on 07/18/2024 at 1:45 ECG Data Attestation: I personally reviewed and interpreted this ECG as follows: Interpretation: Normal sinus rhythm with rate 85, no obvious ST segment elevation or depression changes. Diffuse T-wave inversion changes noted. [place] 134, QRS 86, QTC 409. MDM Narrative Medical decision making narrative: 23-year-old female SAB 1 with current 7 weeks 4 days gestation by reported AMY, history of previous migraine headaches, with nausea and retching and frontal sinus area discomfort, no trauma, afebrile, sirs screen negative. IV fluid bolus, IV ondansetron. Oral Tylenol. Labs pending. White blood cell count 92997. Chest x-ray negative. Urine dip negative. COVID/flu/RSV swab negative. Symptoms improved, able to ambulate, able to take oral fluids. Discharged home with family, follow up with obstetrics provider as scheduled. Return precautions discussed Discharge Plan Departure Patient Disposition: Home Clinical Impression: Nausea, Headache, Activity Restrictions/Additional Instructions: Current reported early , with some dizziness and headache, ongoing nausea. IV fluids given, oral Tylenol given, IV antinausea medicine ondansetron given. Symptoms improved. No vaginal bleeding reported. No fever at triage. Urinalysis urine dip negative. Chest x-ray was unremarkable. COVID and flu and RSV swab was negative. Symptoms improved, you were able to walk around, took oral fluids. Home pack of ondansetron sublingual to use for nausea control at home if it should be needed. Tylenol as needed for headache or other discomfort. Follow up for the next visit with your OB provider as planned. Return to this/nearest emergency department for any change worsening symptoms or any concerns prior Prescriptions: No Action metformin 500 mg tablet 500 mg PO BIDWMEAL Qty: 180 3RF Trulicity 0.75 mg/0.5 mL pen injector 0.75 mg SUBCUT QWEEK Qty: 2 2RF vit-ferrous sulfat-FA 27 mg iron- 0.8 mg tablet PO Referrals: Wade Post MD [Primary Care Provider] - Stand Alone Forms: Patient Portal/API/Survey
[2024-07-18 00:50] VITALS: BP 121/42; PULSE 84; O2SAT 99
[2024-07-18 01:00] VITALS: BP 109/53; PULSE 84; RESP 18; O2SAT 99
--- NOTE | 2024-07-18 01:00 | DI.RAD.S_ITS ---
PROCEDURE: XR CHEST 1V INDICATIONS: chest pain TECHNIQUE: One view of the chest was acquired. COMPARISON: None. FINDINGS: Surgical changes and devices: None. Lungs and pleura: Lungs are clear. No pleural effusions or pneumothorax. Mediastinum: Mediastinal contours appear normal. Heart size is normal. Bones and chest wall: No suspicious bony lesions. Overlying soft tissues appear unremarkable. IMPRESSION: No acute cardiopulmonary abnormality is seen. Dictated by: Lia Cooper M.D. on 07/18/2024 at 1:45 Approved by: Lia Cooper M.D. on 07/18/2024 at 1:45
[2024-07-18] MEDS: SODIUM CHLORIDE 0.9% 1,000 ML 1000 ML IV (01:22)
[2024-07-18] MEDS: ACETAMINOPHEN 325 MG TABLET 975 MG PO (01:22)
[2024-07-18 01:32] LABS: Add Manual Diff / Slide Review NO; Basophils Absolute Auto 100 /uL (0-100); Basophils Percent Auto 0.8 % (0-2); Eosinophils Absolute Auto 300 /uL (0-450); Eosinophils Percent Auto 1.8 % (2-4); Hematocrit 36.1 % (36-46); Hemoglobin 11.6 g/dL (12.0-16.0); Lymphocytes Absolute Auto 4900 /uL (1100-4500); Lymphocytes Percent Auto 30.8 % (25-40); Mean Corpuscular HGB Conc 32.2 % (30-36); Mean Corpuscular Hemoglobin 26.3 PG (26-34); Mean Corpuscular Volume 81.7 fL (80-100); Monocytes Absolute Auto 1000 /uL (0-900); Monocytes Percent Auto 6.4 % (3-14); Neutrophils Absolute Auto 9700 /uL (1500-7000); Neutrophils Percent Auto 60.2 % (50-75); Platelet Count 344 X10^3/uL (150-400); Red Blood Cell Count 4.41 X10^6/uL (4.0-5.2); Red Cell Distribution Width 18.2 % (11.6-14.8)
[2024-07-18 01:40] LABS: Alanine Aminotransferase 22 IU/L (<35); Albumin Globulin Ratio 1.2 (1.0-2.8); Alkaline Phosphatase 98 U/L (38-126); Aspartate Aminotransferase 22 IU/L (14-36); BUN Creatinine Ratio 19.2 (6-22); Bilirubin Total 0.3 mg/dL (0.2-1.3); Blood Urea Nitrogen 10 mg/dL (7-17); Calcium 9.1 mg/dL (8.4-10.2); Carbon Dioxide 26 mmol/L (22-32); Chloride 102 mmol/L (98-107); Creatine Kinase 148 U/L (30-135); Estimated Glomerular Filt Rate > 60 mL/min (>60); Globulin 3.4 g/dL (1.7-4.1); Glucose 131 mg/dL (70-100); HEMOLYSIS < 15 (0-50); Lipase 56 U/L (23-300); Potassium 3.4 mmol/L (3.4-5.1); Sodium 134 mmol/L (137-145); Total Protein 7.4 g/dL (6.3-8.2)
[2024-07-18 01:51] LABS: Troponin I < 0.012 ng/mL (0.01-0.034)
[2024-07-18 01:54] LABS: Appearance Urine UA CLEAR; Bilirubin Urine UA NEGATIVE (NEGATIVE); Color Urine UA YELLOW; Glucose Urine UA NEGATIVE (Negative); Ketones Urine UA NEGATIVE (NEGATIVE); Leukocyte Esterase Urine UA NEGATIVE (NEGATIVE); Nitrite Urine UA NEGATIVE (Negative); Occult Blood Urine UA NEGATIVE (Negative); Protein Urine UA NEGATIVE (Negative); Specific Gravity Urine UA <=1.005 (1.000-1.035); Urobilinogen Urine UA 0.2 E.U./dL (0.2)
[2024-07-18 02:00] LABS: pH Urine UA 6.5 (4.5-8.0)
[2024-07-18 02:01] LABS: Influenza A - CEPHEID Flu A NEGATIVE (NEGATIVE); Influenza B - CEPHEID Flu B NEGATIVE (NEGATIVE); Respiratory Syncytial Virus Negative (Negative)
[2024-07-18 02:01] LABS: Bacteria Urine Occasional (0-1); Culture Indicated Urine Cult Not Indicated; RBC Urine None Seen (0-5/HPF); Squamous Epithelial Cell Urine 1-5 /HPF (0-5/HPF); Urine Volume 10mL (spun); WBC Urine None Seen (0-5/HPF)
[2024-07-18 02:06] LABS: COVID-19 CEPHEID 4-PLEX PCR Negative (Negative)
[2024-07-18] MEDS: ONDANSETRON 4 MG/2 ML INJ IV (02:26)
[2024-07-18 02:28] VITALS: BP 110/57; PULSE 84; O2SAT 98
== END 2024-07-18 02:34 | disposition home or self-care (01) ==
PROVIDERS: Emergency Provider Emergency Medicine; PCP Family Medicine
DX: O26.891 Other specified pregnancy related conditions, first trimester (principal); R11.2 Nausea with vomiting, unspecified; R51.9 Headache, unspecified; R42 Dizziness and giddiness; R07.9 Chest pain, unspecified; Z3A.01 Less than 8 weeks gestation of pregnancy
CPT/HCPCS: 0241U; 36415; 71045; 80053; 81001; 81003; 82550; 83690; 84484; 85025; 93005; 96361; 96374; 99284; J2405

== ENCOUNTER → 2024-08-24 14:07 | Outpatient (CLI) | payer OTHER, SELFPAY ==
[2024-08-24 14:42] LABS: Appearance Urine UA SL CLOUDY; Bilirubin Urine UA NEGATIVE (NEGATIVE); Color Urine UA YELLOW; Glucose Urine UA NEGATIVE (Negative); Ketones Urine UA NEGATIVE (NEGATIVE); Leukocyte Esterase Urine UA NEGATIVE (NEGATIVE); Nitrite Urine UA NEGATIVE (Negative); Occult Blood Urine UA NEGATIVE (Negative); Protein Urine UA NEGATIVE (Negative); Specific Gravity Urine UA 1.015 (1.000-1.035); Urobilinogen Urine UA 0.2 E.U./dL (0.2)
[2024-08-24 14:44] LABS: pH Urine UA 7.5 (4.5-8.0)
[2024-08-24 15:25] LABS: Add Manual Diff / Slide Review NO; Basophils Absolute Auto 100 /uL (0-100); Basophils Percent Auto 0.5 % (0-2); Eosinophils Absolute Auto 300 /uL (0-450); Eosinophils Percent Auto 2.1 % (2-4); Hematocrit 37.3 % (36-46); Hemoglobin 12.2 g/dL (12.0-16.0); Lymphocytes Absolute Auto 3800 /uL (1100-4500); Lymphocytes Percent Auto 27.4 % (25-40); Mean Corpuscular HGB Conc 32.7 % (30-36); Mean Corpuscular Hemoglobin 27.5 PG (26-34); Mean Corpuscular Volume 84.3 fL (80-100); Monocytes Absolute Auto 1200 /uL (0-900); Monocytes Percent Auto 8.6 % (3-14); Neutrophils Absolute Auto 8600 /uL (1500-7000); Neutrophils Percent Auto 61.4 % (50-75); Platelet Count 354 X10^3/uL (150-400); Red Blood Cell Count 4.43 X10^6/uL (4.0-5.2); Red Cell Distribution Width 18.4 % (11.6-14.8)
[2024-08-25 03:36] LABS: RPR Screen Non Reactive (Non Reactive)
[2024-08-25 07:08] LABS: Varicella IgG Antibody Reactive (Non Reactive)
[2024-08-26 15:19] LABS: Hepatitis B Surface Antigen NEGATIVE s/c (NEGATIVE)
[2024-08-26 15:25] LABS: HIV 1 & 2 Ab/Ag 4th Gen Combo NEGATIVE (NEGATIVE); Hep C Virus Ab w/Reflex Quant NEGATIVE s/c (NEGATIVE)
== END ==
PROVIDERS: PCP Family Medicine; Referring Provider Family Medicine; Visit Provider Family Medicine
DX: Z34.80 Encounter for supervision of other normal pregnancy, unspecified trimester (principal)
CPT/HCPCS: 36415; 80055; 81003; 86787; 86803; 86850; 86900; 86901; 87389

== ENCOUNTER → 2024-09-13 10:41 | Outpatient (CLI) | payer OTHER, SELFPAY ==
[2024-09-13 11:26] LABS: Hemoglobin A1C% w Est Avg Glu 5.3 % (4.0-6.0)
[2024-09-13 11:56] LABS: Vitamin D 25 Hydroxy (D3) 31.8 ng/mL (30.0-100.0)
[2024-09-13 12:16] LABS: Ferritin 9 ng/mL (6-137)
[2024-09-13 12:20] LABS: Creatinine Urine Random 159.92 mg/dL
[2024-09-13 12:21] LABS: Protein (Total) Urine Random < 5 mg/dL (0-12); Protein Creatinine Ratio Urine 0.03 GRAM/24H
== END ==
PROVIDERS: PCP Family Medicine; Referring Provider Family Medicine; Visit Provider Family Medicine
DX: O24.911 Unspecified diabetes mellitus in pregnancy, first trimester (principal)
CPT/HCPCS: 36415; 82306; 82570; 82728; 83036; 84156

== ENCOUNTER 2024-12-14 18:25 | Outpatient (CLI) | payer OTHER, SELFPAY ==
[2024-12-14 18:46] LABS: Appearance Urine UA CLEAR; Bilirubin Urine UA NEGATIVE (NEGATIVE); Color Urine UA YELLOW; Glucose Urine UA 1+ g/dL (Negative); Ketones Urine UA NEGATIVE (NEGATIVE); Leukocyte Esterase Urine UA NEGATIVE (NEGATIVE); Nitrite Urine UA NEGATIVE (Negative); Occult Blood Urine UA NEGATIVE (Negative); Protein Urine UA NEGATIVE (Negative); Urobilinogen Urine UA 0.2 E.U./dL (0.2)
[2024-12-14 18:56] LABS: Bacteria Urine Occasional (0-1); Culture Indicated Urine Cult Not Indicated; RBC Urine None Seen (0-5/HPF); Squamous Epithelial Cell Urine 1-5 /HPF (0-5/HPF); Urine Volume 10mL (spun); WBC Urine None Seen (0-5/HPF)
== END 2024-12-14 19:30 | disposition home or self-care (01) ==
LOC: LABOR 20:05 → OB 12-15 15:30
PROVIDERS: PCP Family Medicine; Referring Provider Obstetrics & Gynecology; Visit Provider Student in an Organized Health Care Education/Training Program
DX: O26.893 Other specified pregnancy related conditions, third trimester (principal); R10.30 Lower abdominal pain, unspecified; Z3A.28 28 weeks gestation of pregnancy
CPT/HCPCS: 59025; 81001; G0378; G0379

== ENCOUNTER → 2024-12-24 19:03 | Outpatient (ROUT) | payer OTHER, SELFPAY ==
[2024-12-28 07:09] LABS: HSV 1 DNA Positive (Negative); HSV 2 DNA Negative (Negative)
== END ==
PROVIDERS: PCP Family Medicine; Visit Provider Family Medicine
DX: B00.9 Herpesviral infection, unspecified (principal)
CPT/HCPCS: 87529

== ENCOUNTER → 2025-01-05 14:06 | Outpatient (CLI) | payer OTHER, SELFPAY ==
[2025-01-05 15:27] LABS: Hematocrit 35.5 % (36-46); Hemoglobin 11.9 g/dL (12.0-16.0); Mean Corpuscular HGB Conc 33.4 % (30-36); Mean Corpuscular Hemoglobin 28.8 PG (26-34); Mean Corpuscular Volume 86.2 fL (80-100); Platelet Count 283 X10^3/uL (150-400); Red Blood Cell Count 4.12 X10^6/uL (4.0-5.2); White Blood Cell Count 12.1 X10^3/uL (4.5-11.0)
[2025-01-05 15:50] LABS: Hemoglobin A1C% w Est Avg Glu 5.7 % (4.0-6.0)
[2025-01-05 16:16] LABS: HEMOLYSIS < 15 (0-50); Iron 90 ug/dL (37-170)
[2025-01-05 16:30] LABS: Percent Iron Saturation 22 % (15-50); Total Iron Binding Capacity 401 ug/dL (265-497); Transferrin 350 mg/dL (206-381)
[2025-01-05 16:37] LABS: Vitamin D 25 Hydroxy (D3) 24.3 ng/mL (30.0-100.0)
[2025-01-05 16:54] LABS: Ferritin 7 ng/mL (6-137)
== END ==
PROVIDERS: PCP Family Medicine; Referring Provider Family Medicine; Visit Provider Family Medicine
DX: O09.899 Supervision of other high risk pregnancies, unspecified trimester (principal); O24.911 Unspecified diabetes mellitus in pregnancy, first trimester; D50.0 Iron deficiency anemia secondary to blood loss (chronic)
CPT/HCPCS: 36415; 59025; 82306; 82728; 83036; 83540; 83550; 85027

== ENCOUNTER → 2025-01-05 14:12 | Outpatient (CLI) | payer OTHER, SELFPAY | LOC: OB 01-06 12:51 | PROVIDERS: PCP Family Medicine; Referring Provider Obstetrics & Gynecology; Visit Provider Obstetrics & Gynecology | DX: Z34.83 Encounter for supervision of other normal pregnancy, third trimester (principal); Z3A.31 31 weeks gestation of pregnancy ==

== ENCOUNTER 2025-01-12 12:59 | Outpatient (CLI) | payer OTHER, SELFPAY ==
--- NOTE | 2025-01-12 13:51 | P.TNLD_ITS ---
Visit Information Visit Information Date of evaluation: 01/12/25 Primary OB Provider: Wade Post Reason for Evaluation: Yes pre-term labor and Yes rule out labor Comments/Additional reasons for admission: 24yo at [place] 32+6 weeks here for labor evaluation. Reports right side back pain radiating to abdomen. +FM; denies vb, lof, pelvic pain. 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 c/b pre-existing DM on insulin (managed by MFM), obesity, HSV-1 infection. [facility] Medical History (Updated 01/12/25 @ 14:56 by Wade Post MD) Spontaneous miscarriage (~11/2023) Diabetes mellitus type 2, controlled Vaginal delivery (~01/10/22) Recurrent UTI (~2019) Painful menstrual periods delivery (maternal condition) Surgical History (Updated 07/12/24 @ 13:13 by Marta Elizabeth RN) [place] teeth extracted Family History (Updated 07/12/24 @ 13:17 by Marta Elizabeth RN) Mother Loud snoring Hypertension Diabetes mellitus Father Family estrangement Grandmother Stillbirth of single fetus Hypertension Grandfather Diabetes mellitus Heart disease Grandmother Family history unknown Grandfather Family history unknown Sister Scoliosis Heart murmur Social History marital status: number of children: 1 household members: spouse and children lives independently: Yes caregiver/support person: No housing: condominium (base housing) pets and animals: No education level: college (some college) 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 (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) milvia/taoist: Je[employer] special milvia needs: No travel history: recent (domestic/[place] only) seatbelt use: always water heater temp set < 120 deg: Yes working smoke detector in home: Yes fire extinguisher in home: Yes carbon monox detector in home: Yes firearms in home: No do you feel safe at home: Yes Tobacco: How many years used: 1 quit status: considering quitting second hand exposure: Yes ( also vapes but is also trying to quit) alcohol intake: former (quit drinking when she got out of the ) substance use type: does not use during the past year weight has: other (fluctuated quite a bit) well-balanced diet: rarely or never daily servings fruits/ve-1 caffeine: No 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) frequency: does not exercise Review of Systems Review of Systems ROS: Yes All systems reviewed with the patient and are negative except as otherwise documented Evaluation Evaluation Baseline heart rate: 150 Variability: Moderate (6-25) monitor accelerations: Present Monitor Decelerations: Absent Category of Tracing: Reactive Status: Category l Cervical dilation (cm): 0 Diagnosis, Plan/Disposition Final Diagnosis (1) Back pain affecting in third trimester: Status: Acute (2) 32 weeks gestation of : Status: Acute Plan/Disposition Plan: No change on cervical exam over 1.5 hours, Cat 1 strip reassuring for FWB. OB Disposition: home
[2025-01-12] MEDS: ACETAMINOPHEN 325 MG TABLET 650 MG PO (14:14)
== END 2025-01-12 14:33 | disposition home or self-care (01) ==
LOC: LABOR 13:40 → OB 01-13 13:36
PROVIDERS: PCP Family Medicine; Referring Provider Family Medicine; Visit Provider Family Medicine
DX: O26.893 Other specified pregnancy related conditions, third trimester (principal); Z3A.32 32 weeks gestation of pregnancy; M54.9 Dorsalgia, unspecified
CPT/HCPCS: 59000; 59025; 84112; G0378; G0379

== ENCOUNTER 2025-01-19 14:17 | Outpatient (CLI) | payer OTHER, SELFPAY ==
--- NOTE | 2025-01-19 15:33 | PM.OBTRLD ---
Visit Information Visit Information Date of evaluation: 01/19/25 Primary OB Provider: Wade Post Reason for Evaluation: Yes non-stress test non-stress test reason: diabetes Comments/Additional reasons for admission: 24yo at [place] 33+6 weeks here for testing. +FM; denies vb, lof, abd pain, ctx. c/b pre-existing DM on insulin (managed by MFM), obesity, HSV-1 infection. [facility] Medical History (Updated 01/12/25 @ 14:56 by Wade Post MD) Spontaneous miscarriage (~11/2023) Diabetes mellitus type 2, controlled Vaginal delivery (~01/10/22) Recurrent UTI (~2019) Painful menstrual periods delivery (maternal condition) Surgical History (Updated 07/12/24 @ 13:13 by Marta Elizabeth RN) [place] teeth extracted Family History (Updated 07/12/24 @ 13:17 by Marta Elizabeth RN) Mother Loud snoring Hypertension Diabetes mellitus Father Family estrangement Grandmother Stillbirth of single fetus Hypertension Grandfather Diabetes mellitus Heart disease Grandmother Family history unknown Grandfather Family history unknown Sister Scoliosis Heart murmur Social History marital status: number of children: 1 household members: spouse and children lives independently: Yes caregiver/support person: No housing: condominium (base housing) pets and animals: No education level: college (some college) 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 (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) milvia/pentecostalism: Taoist special milvia needs: No travel history: recent (domestic/[place] only) seatbelt use: always water heater temp set < 120 deg: Yes working smoke detector in home: Yes fire extinguisher in home: Yes carbon monox detector in home: Yes firearms in home: No do you feel safe at home: Yes Tobacco: How many years used: 1 quit status: considering quitting second hand exposure: Yes ( also vapes but is also trying to quit) alcohol intake: former (quit drinking when she got out of the ) substance use type: does not use during the past year weight has: other (fluctuated quite a bit) well-balanced diet: rarely or never daily servings fruits/ve-1 caffeine: No 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 Continue routine testing per protocol. OB Disposition: home
== END 2025-01-19 15:14 | disposition home or self-care (01) ==
LOC: OB 17:29
PROVIDERS: PCP Family Medicine; Referring Provider Family Medicine; Visit Provider Family Medicine
DX: O24.113 Pre-existing type 2 diabetes mellitus, in pregnancy, third trimester (principal); O99.213 Obesity complicating pregnancy, third trimester; E66.9 Obesity, unspecified; Z3A.33 33 weeks gestation of pregnancy; Z79.4 Long term (current) use of insulin
CPT/HCPCS: 59025; G0378; G0379

== ENCOUNTER 2025-01-26 10:00 | Outpatient (CLI) | payer OTHER, SELFPAY | END 2025-01-26 10:47 | disposition home or self-care (01) | LOC: OB 01-28 10:54 | PROVIDERS: PCP Family Medicine; Referring Provider Family Medicine; Visit Provider Family Medicine | DX: O24.113 Pre-existing type 2 diabetes mellitus, in pregnancy, third trimester (principal); Z3A.34 34 weeks gestation of pregnancy; Z79.4 Long term (current) use of insulin | CPT/HCPCS: 59025; G0378; G0379 ==

== ENCOUNTER 2025-02-02 12:53 | Outpatient (CLI) | payer OTHER, SELFPAY ==
--- NOTE | 2025-02-02 13:37 | PM.OBTRLD ---
Visit Information Visit Information Date of evaluation: 02/02/25 Primary OB Provider: Wade Post Reason for Evaluation: Yes non-stress test non-stress test reason: diabetes Comments/Additional reasons for admission: 24yo at [place] 35+6 weeks here for testing. +FM; denies vb, lof, abd pain, ctx. c/b pre-existing DM on insulin (managed by MFM), obesity, HSV-1 infection. [facility] Medical History (Updated 01/28/25 @ 15:21 by Angie Loredo MD) Spontaneous miscarriage (~11/2023) Diabetes mellitus type 2, controlled Vaginal delivery (~01/10/22) Recurrent UTI (~2019) Painful menstrual periods delivery (maternal condition) Surgical History (Updated 07/12/24 @ 13:13 by Marta Elizabeth RN) [place] teeth extracted Family History (Updated 07/12/24 @ 13:17 by Marta Elizabeth RN) Mother Loud snoring Hypertension Diabetes mellitus Father Family estrangement Grandmother Stillbirth of single fetus Hypertension Grandfather Diabetes mellitus Heart disease Grandmother Family history unknown Grandfather Family history unknown Sister Scoliosis Heart murmur Social History marital status: number of children: 1 household members: spouse and children lives independently: Yes caregiver/support person: No housing: condominium (base housing) pets and animals: No education level: college (some college) 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 (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) milvia/jainism: [employer] special milvia needs: No travel history: recent (domestic/[place] only) seatbelt use: always water heater temp set < 120 deg: Yes working smoke detector in home: Yes fire extinguisher in home: Yes carbon monox detector in home: Yes firearms in home: No do you feel safe at home: Yes Tobacco: How many years used: 1 quit status: considering quitting second hand exposure: Yes ( also vapes but is also trying to quit) alcohol intake: former (quit drinking when she got out of the ) substance use type: does not use during the past year weight has: other (fluctuated quite a bit) well-balanced diet: rarely or never daily servings fruits/ve-1 caffeine: No 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 Continue routine testing per protocol. OB Disposition: home
== END 2025-02-02 13:50 | disposition home or self-care (01) ==
LOC: LABOR 13:16 → OB 02-03 12:44
PROVIDERS: PCP Family Medicine; Referring Provider Family Medicine; Visit Provider Family Medicine
DX: O24.113 Pre-existing type 2 diabetes mellitus, in pregnancy, third trimester (principal); O99.213 Obesity complicating pregnancy, third trimester; E66.9 Obesity, unspecified; O98.513 Other viral diseases complicating pregnancy, third trimester; B00.9 Herpesviral infection, unspecified; Z79.84 Long term (current) use of oral hypoglycemic drugs
CPT/HCPCS: 59025; G0378; G0379

== ENCOUNTER 2025-02-09 11:15 | Outpatient (CLI) | payer OTHER, SELFPAY ==
--- NOTE | 2025-02-09 11:50 | PM.OBTRLD ---
Visit Information Visit Information Date of evaluation: 02/09/25 Primary OB Provider: Wade Post Reason for Evaluation: Yes non-stress test non-stress test reason: diabetes Comments/Additional reasons for admission: 24yo at [place] 36+6 weeks here for testing. +FM; denies vb, lof, abd pain, ctx. c/b pre-existing DM on insulin (managed by MFM), obesity, HSV-1 infection. [facility] Medical History (Updated 01/28/25 @ 15:21 by Angie Loredo MD) Spontaneous miscarriage (~11/2023) Diabetes mellitus type 2, controlled Vaginal delivery (~01/10/22) Recurrent UTI (~2019) Painful menstrual periods delivery (maternal condition) Surgical History (Updated 07/12/24 @ 13:13 by Marta Elizabeth RN) [place] teeth extracted Family History (Updated 07/12/24 @ 13:17 by Marta Elizabeth RN) Mother Loud snoring Hypertension Diabetes mellitus Father Family estrangement Grandmother Stillbirth of single fetus Hypertension Grandfather Diabetes mellitus Heart disease Grandmother Family history unknown Grandfather Family history unknown Sister Scoliosis Heart murmur Social History marital status: number of children: 1 household members: spouse and children lives independently: Yes caregiver/support person: No housing: condominium (base housing) pets and animals: No education level: college (some college) 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 (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) milvia/pentecostalism: [employer] special milvia needs: No travel history: recent (domestic/[place] only) seatbelt use: always water heater temp set < 120 deg: Yes working smoke detector in home: Yes fire extinguisher in home: Yes carbon monox detector in home: Yes firearms in home: No do you feel safe at home: Yes Tobacco: How many years used: 1 quit status: considering quitting second hand exposure: Yes ( also vapes but is also trying to quit) alcohol intake: former (quit drinking when she got out of the ) substance use type: does not use during the past year weight has: other (fluctuated quite a bit) well-balanced diet: rarely or never daily servings fruits/ve-1 caffeine: No 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 Continue routine testing per protocol. OB Disposition: home
== END 2025-02-09 11:57 | disposition home or self-care (01) ==
LOC: LABOR 11:35 → OB 17:03
PROVIDERS: PCP Family Medicine; Referring Provider Family Medicine; Visit Provider Family Medicine
DX: O24.113 Pre-existing type 2 diabetes mellitus, in pregnancy, third trimester (principal); Z79.4 Long term (current) use of insulin; O99.213 Obesity complicating pregnancy, third trimester; E66.9 Obesity, unspecified; Z3A.36 36 weeks gestation of pregnancy
CPT/HCPCS: 59025; G0378; G0379

== ENCOUNTER → 2025-02-09 11:38 | Outpatient (CLI) | payer OTHER, SELFPAY ==
[2025-02-10 10:40] LABS: Strep Grp B PCR POS for Grp B Strep
== END ==
PROVIDERS: PCP Family Medicine; Visit Provider Family Medicine
DX: Z3A.36 36 weeks gestation of pregnancy (principal)
CPT/HCPCS: 59025; 87081; 87653

== ENCOUNTER 2025-02-17 07:45 | Inpatient (IN) | payer OTHER, SELFPAY ==
[2025-02-17 08:48] LABS: Add Manual Diff / Slide Review NO; Hematocrit 37.4 % (36-46); Hemoglobin 12.4 g/dL (12.0-16.0); Lymphocytes Absolute Auto 3100 /uL (1100-4500); Mean Corpuscular HGB Conc 33.2 % (30-36); Mean Corpuscular Hemoglobin 28.9 PG (26-34); Mean Corpuscular Volume 87.1 fL (80-100); Platelet Count 222 X10^3/uL (150-400)
[2025-02-17 09:20] LABS: Blood Urea Nitrogen 9 mg/dL (7-17); Calcium 9.0 mg/dL (8.4-10.2); Carbon Dioxide 22 mmol/L (22-32); Chloride 105 mmol/L (98-107); Estimated Glomerular Filt Rate > 60 mL/min (>60); Glucose 99 mg/dL (70-99); HEMOLYSIS < 15 (0-50); Potassium 3.6 mmol/L (3.4-5.1); Sodium 135 mmol/L (137-145)
[2025-02-17] MEDS: INSULIN LISPRO 100 UNIT/ML 3ML VIAL SUBCUT ×2 (11:02→17:38)
--- NOTE | 2025-02-17 12:22 | PM.OBHP.IH.1 ---
OB HPI Date/Time Date of admission: 02/17/25 History of Present Condition Chief complaint: INDUCTION AMY Calculator Estimated Delivery Date Method Current WG Current Estimate 03/03/25 LMP (Certain) 38w 0d Estimated Gestational Age (weeks): 38+0 : 3 Para: 1 Narrative: 24-year-old at [place] 38+0 weeks presenting for mIOL. Endorses normal movement. Denies vaginal bleeding or denies leakage of fluid. course notable for pre-existing DM on insulin (managed by [facility]) poorly controlled with recent non-adherence to medication, obesity, HSV-1 infection. care: good care Dating criteria OB: LMP confirmed by 1st trimester US Ultrasounds: normal 1st trimester US and normal mid trimester US Medical complications OB: other (pre-existing diabetes, HSV) Indications Indication for induction OB: other (pre-existing diabetes) Preadmission Labs Last OB Lab Results: Blood Type O Positive Today, 08:30 Antibody Screen Negative Today, 08:30 Hct, (36-46) 37.4 % Today, 08:30 Hgb, (12.0-16.0) 12.4 g/dL Today, 08:30 Hep Bs Antigen, (NEGATIVE) Negative s/c 08/24/24, 14:14 Hepatitis C Antibody, (NEGATIVE) Negative s/c 08/24/24, 14:14 Rubella Antibody, (>15) 245.0 IU/mL 08/24/24, 14:14 VZV IgG Antibody, (Non Reactive) Reactive 08/24/24, 14:14 Glucose 1 Hr 50 gm, (76-139) 127 mg/dL 11/06/21, 14:56 Hemoglobin A1c, (4.0-6.0) 5.7 % 01/05/25, 14:53 Group B Strep (PCR) Pos for grp b strep H 02/09/25, 11:38 Prior (ies) Past Pregnancies Del. Date GA/Weeks Labor Lgth Wt Sex Route Outcome Anesthesia Place Delv Breastfeed Preg Comp Name 01/10/22 37.5 9 lb 5.1 oz Male vaginal vacuum live - full term [facility] 8 months Thor 11/12/23 5-6 spontaneous Delivery Date: 11/12/23 Last Updated by: Marta Elizabeth RN passed spontaneously, no complications Evaluation Evaluation Baseline heart rate: 135 Variability: Moderate (6-25) monitor accelerations: Present Monitor Decelerations: Late Contraction Frequency (minutes): 3 Uterine Contraction Intensity: Mild Category of Tracing: Reactive Status: Category ll Dilation (cm): 1 Effacement (%): 30 station: -3 Position of cervix: mid Consistency: soft Comments: Exam per L&D RN [facility] Medical History (Updated 01/28/25 @ 15:21 by Angie Loredo MD) Spontaneous miscarriage (~11/2023) Diabetes mellitus type 2, controlled Vaginal delivery (~01/10/22) Recurrent UTI (~2019) Painful menstrual periods delivery (maternal condition) Surgical History (Updated 07/12/24 @ 13:13 by Marta Elizabeth RN) [place] teeth extracted Family History (Updated 07/12/24 @ 13:17 by Marta Elizabeth RN) Mother Loud snoring Hypertension Diabetes mellitus Father Family estrangement Grandmother Stillbirth of single fetus Hypertension Grandfather Diabetes mellitus Heart disease Grandmother Family history unknown Grandfather Family history unknown Sister Scoliosis Heart murmur Social History marital status: number of children: 1 household members: spouse and children lives independently: Yes caregiver/support person: No housing: condominium (base housing) pets and animals: No education level: college (some college) 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 (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) milvia/methodist: Sikh special milvia needs: No travel history: recent (domestic/[place] only) seatbelt use: always water heater temp set < 120 deg: Yes working smoke detector in home: Yes fire extinguisher in home: Yes carbon monox detector in home: Yes firearms in home: No do you feel safe at home: Yes Tobacco: How many years used: 1 quit status: considering quitting second hand exposure: Yes ( also vapes but is also trying to quit) alcohol intake: former (quit drinking when she got out of the ) substance use type: does not use during the past year weight has: other (fluctuated quite a bit) well-balanced diet: rarely or never daily servings fruits/ve-1 caffeine: No 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) frequency: does not exercise Meds Home Medications and Allergies Home Medications ?Medication ?Instructions ?Recorded ?Confirmed ?Type vitamin-ferrous sulfate tab PO 07/12/24 02/09/25 History 27 mg iron-folic acid 0.8 mg tablet acetaminophen-caffeine 500 mg-65 1 tab PO Q6H PRN pain #30 tabs 11/02/24 02/17/25 Rx mg tablet acyclovir 400 mg tablet 400 mg PO TID #120 tabs 01/03/25 02/09/25 Rx Allergies Allergy/AdvReac Type Severity Reaction Status Date / Time Penicillins Allergy Mild hives Verified 02/09/25 12:23 OB Exam Narrative Exam Narrative: General: Well-nourished, no distress HEENT: NC/AT, EOMI, moist mucous membranes CV: RRR, normal S1 S2, no m/g/r Resp: CTAB Abd: Gravid, soft, NTND, +BS Ext: Full ROM, no edema Skin: No rash or lesions Neuro: A&O x3, normal tone, no focal deficits Objective Labs 02/17/25 08:30 02/17/25 08:58 Labs: Laboratory Results - last 24 hr 02/17/25 02/17/25 02/17/25 08:30 08:58 10:36 WBC 11.7 H RBC 4.29 Hgb 12.4 Hct 37.4 MCV 87.1 MCH 28.9 MCHC 33.2 RDW 16.6 H Plt Count 222 Neut % (Auto) 63.5 Lymph % (Auto) 26.4 [place] % (Auto) 8.1 Eos % (Auto) 1.4 L Baso % (Auto) 0.6 Neut # (Auto) 7400 H Lymph # (Auto) 3100 [place] # (Auto) 1000 H Eos # (Auto) 200 Baso # (Auto) 100 Sodium 135 L Potassium 3.6 Chloride 105 Carbon Dioxide 22 BUN 9 Creatinine 0.48 L Estimated GFR > 60 BUN/Creatinine Ratio 18.8 Glucose 99 POC Whole Bld Glucose 144 H Calcium 9.0 Blood Type O Positive Antibody Screen Negative 02/17/25 11:58 WBC RBC Hgb Hct MCV MCH MCHC RDW Plt Count Neut % (Auto) Lymph % (Auto) [place] % (Auto) Eos % (Auto) Baso % (Auto) Neut # (Auto) Lymph # (Auto) [place] # (Auto) Eos # (Auto) Baso # (Auto) Sodium Potassium Chloride Carbon Dioxide BUN Creatinine Estimated GFR BUN/Creatinine Ratio Glucose POC Whole Bld Glucose 126 H Calcium Blood Type Antibody Screen Assessment and Plan Assessment and Plan Assessment and Plan narrative: 24-year-old at [place] 38+0 weeks presenting for mIOL. course notable for pre-existing DM on insulin (managed by [facility]) poorly controlled with recent non-adherence to medication, obesity, HSV-1 infection.. -admit to L&D -cervical ripening with misoprostol q4h -diabetes: glargine 30u qhs, moderate ISS, glucose checks q4h in latent labor, q1h in active labor, goal glucose < 110 -GBS positive, ppx indicated -pain control prn if desired by patient -PPH risk low -VTE risk low, SCDs with epidural -anticipate vaginal delivery Time-Based Coding :: 30 minutes spent with patient and on the chart (including review of chart, obtaining history, exam, reviewing outside data, placing orders, documenting exam and treatment plan, and counseling patient) on 02/17/2025.
--- NOTE | 2025-02-17 13:21 | PM.OBPNLAB ---
Date/Time Date Patient Seen: 02/17/25 Time Patient Seen: 12:30 Pain Control Pain control: tolerating well Pelvic Exam Dilation (cm): 1 Effacement (%): 30 station: -3 Amniotic membrane status: Intact Contractions Contractions on admission: regular Monitor mode: External Contraction intensity: Mild Status status: Category ll Heart Rate Baseline: 165 Monitor Accelerations: Present Monitor Decelerations: Late and Recurrent Monitor Variability: Minimal Assessment and Plan Plan: Comments: MWB: No discomfort, tolerating induction s/p cytotec x1. FWB: Recurrent late decelerations with baseline HR increase to 165bpm. Labor: nrFHT remote from delivery. Recurrent late decelerations after one dose of cytotec. Discussed w/patient unlikely baby will tolerate labor to the point of successful vaginal delivery and recommend non-urgent delivery to avoid emergent delivery with risk of increased complications. Consent form for section was reviewed with the patient. Risk of reaction to medication or anesthesia, risk of bleeding enough to require blood transfusion which she is agreeable to, risk of infection, risk of damage to internal structures such as bowel, bladder, ureters that could require additional surgery to repair. Consent form signed and questions answered. Pre-op instructions reviewed. Precautions reviewed. Patient agrees and consented to primary section.
[2025-02-17] MEDS: DEXTROSE 50 % IN WATER 25 GM/50 ML SYRINGE IV (14:02)
[2025-02-17] MEDS: CEFAZOLIN 2 GM/100 ML PREMIX 100 ML IV (14:19)
--- NOTE | 2025-02-17 14:31 | SUR.OPER ---
Supine on Padded OR bed, head on pillow, safety belt at thigh, arms secured on padded arm boards at <90 degrees abduction. Bump under right buttock. Legs uncrossed with pillow under knees, gel pad to heels, tape over blanket to lower legs.
--- NOTE | 2025-02-17 14:46 | SUR.OPER ---
pt blood sugar 82, symptomatic, D50 given Jey Rojas at bedside for Viable baby boy born [id number]
[2025-02-17] MEDS: LACTATED RINGERS 1,000 ML 100 ML IV ×2 (15:17→17:06)
[2025-02-17 15:42] VITALS: BP 92/54; PULSE 89; RESP 19; TEMP 36.1; O2SAT 98
[2025-02-17 15:45] VITALS: BP 91/50; PULSE 94; RESP 17; O2SAT 98
[2025-02-17 15:50] VITALS: BP 91/50; PULSE 91; RESP 25; O2SAT 94
[2025-02-17 15:55] VITALS: BP 91/50; PULSE 86; RESP 17; O2SAT 97
[2025-02-17 16:00] VITALS: BP 94/52; PULSE 89; RESP 16; O2SAT 95
--- NOTE | 2025-02-17 16:03 | P.OP_ITS ---
Operative Date/Time/Diagnoses Date of procedure: 02/17/25 Time of procedure: 14:28 Pre-op diagnosis: Term , non-reassuring FHT Post-op diagnosis: other ( malpresentation) Procedure & Clinicians Procedure: Primary Low Transverse Section Same procedure(s) as scheduled: Yes Indications: Nonreassuring heart tracing remote from delivery Surgeon: Wade Post Click Yes if Unassisted: No Recoating Machine Operator: Nena Barber Reason for Recoating Machine Operator: Recoating Machine Operator required for the safe, effective, and timely completion of this surgery. The physical therapy assistant instructor was necessary to retract upon entry into the abdomen and uterus. Assisted with delivery of the with fundal pressure. Assisted with closure with retraction, clipping of suture, and closure of the contralateral fascia Anesthesia Type: Spinal Operative Notes Findings: Viable male infant in transverse position with back down, head to maternal left. Anterior placenta. Normal-appearing tubes and ovaries bilaterally. Closure Type: primary Specimen(s): cord blood Intraoperative meds administered: Duramorph, Ketorolac, Pitocin and Tranexamic acid Applied: Catheter Estimated Blood Loss (mL): 1,000 Blood products transfused: none Procedure in detail: Patient was taken to the operating room where spinal anesthesia was found to be adequate. She was then prepared and draped in the usual sterile fashion in the dorsal supine position with a leftward tilt. A Pfannenstiel incision was then made with a scalpel and carried through to the underlying layer of fascia sharply. The fascia was nicked in the midline, and the incision extended laterally with blunt traction. The superior aspect of the fascial incision was then grasped with Haven clamps, elevated, and the underlying rectus muscles dissected off bluntly. Attention was then turned to the inferior aspect of the incision which, in similar fashion, was grasped, tented up with Haven clamps, and rectus muscles dissected off bluntly. The rectus muscles were then in the midline, and peritoneum identified, tented up, and entered bluntly. The peritoneal opening was then extended superiorly and inferiorly with good visualization of the bladder. An Prosper O retractor was inserted and the lower uterine segment incised in a transverse fashion with the scalpel. The uterine incision was then extended laterally with bluntly. Upon entering the amniotic sac there was moderate amount of clear amniotic fluid. The was noted to be in the transverse position with back down and head to maternal left. He was manipulated into cephalic position before vacuum suction was applied and the head delivered atraumatically. The nose and mouth were suctioned with bulb suction, and the remainder of the body delivered without difficulty. The cord was clamped and cut, and the infant was handed off to the waiting care team. Cord blood was collected and sent. The placenta was then removed by manual expression; the uterus was cleared of all clots and debris. The uterine incision was repaired with 0 Vicryl in a running, locked fashion. A second layer of same suture was used to obtain excellent hemostasis. Tubes and ovaries were examined and were found to be normal, and the uterus returned to the abdomen. The gutters were cleared of all clots. The fascia was reapproximated with 0 Vicryl in a running fashion. The subcutaneous layer was copiously irrigated with warm normal saline. The subcutaneous fat was reapproximated with 3-0 Vicryl. The skin was closed with 3-0 Monocryl. A KIKE dressing was placed. The uterus was expressed of a small amount of old blood. Sponge, lap, and needle counts were correct x2. The patient tolerated the procedure well and was taken to the recovery room in stable condition. Complications: none [place] Baby 1: Delivery Date: 02/17/25 Delivery Time: 14:38 Infant Gender: Male Presentation: other (transverse back down) Position: Transverse (head to maternal left) Placental Delivery Description: Expressed Cord Vessel Description: 3 Vessels score (1 min): 7 score (5 min): 9 weight: 7 lb 6.132 oz Post-operative Condition: stable Disposition: PACU Aftercare: routine postop
[2025-02-17] MEDS: ePHEDrine 50 MG/ML VIAL IV (16:25)
[2025-02-17] MEDS: NALBUPHINE 20 MG/ML AMPUL 5 MG IV ×2 (17:01→23:12)
[2025-02-17] MEDS: diphenhydrAMINE 50 MG/ML VIAL 25 MG IV ×2 (19:48→21:14)
[2025-02-17] MEDS: KETOROLAC 30 MG/ML VIAL IV (21:11)
[2025-02-17] MEDS: INSULIN GLARGINE 100 UNIT/ML 3ML PEN 15 UNIT SUBCUT (22:11)
[2025-02-18] MEDS: KETOROLAC 30 MG/ML VIAL IV ×2 (03:29→10:49)
[2025-02-18] MEDS: NALBUPHINE 20 MG/ML AMPUL 5 MG IV (05:46)
[2025-02-18 06:17] LABS: Add Manual Diff / Slide Review NO; Hematocrit 30.1 % (36-46); Hemoglobin 10.0 g/dL (12.0-16.0); Lymphocytes Absolute Auto 1900 /uL (1100-4500); Mean Corpuscular HGB Conc 33.3 % (30-36); Mean Corpuscular Hemoglobin 29.1 PG (26-34); Mean Corpuscular Volume 87.5 fL (80-100); Platelet Count 201 X10^3/uL (150-400)
[2025-02-18] MEDS: FERROUS SULFATE 325 MG TABLET PO (09:25)
[2025-02-18] MEDS: PRENATAL VIT,CALC/IRON/FOLIC 1 TABLET 1 TAB PO (09:25)
[2025-02-18] MEDS: DOCUSATE 100 MG CAPSULE PO (10:49)
[2025-02-18 12:54] VITALS: BP 93/70; PULSE 90; RESP 14; TEMP 36.9; O2SAT 100
--- NOTE | 2025-02-18 13:13 | PM.OBDS.1 ---
Discharge Providers Provider Date of admission: 02/17/25 07:45 Discharge Date: 02/18/25 Primary care physician: Wade Post MD Consults: 02/17/25 16:40 Consult to Controlled [employer]er Routine Comment: Discharge provider: Wade Post MD Summary Hospital Course Date Patient Seen: 02/18/25 Time Patient Seen: 13:00 Diagnoses: #pre gestational diabetes #obesity affecting #s/p primary section # hemorrhage #acute postoperative blood loss anemia # mother Hospital Course: Admitted for mIOL on 02/17/2025. Cervical ripening with misoprostol provoked recurrent decelerations on heart tracing remote from delivery. Options discussed with patient and it was decided the safest course would be delivery via as it was unlikely that baby would tolerate prolonged labor and pushing. She had an uncomplicated CS of a live male infant with vacuum assistance due to transverse lie. Her course was complicated by persistent pruritus suspected to be related to intraoperative Duramorph. At discharge patient is ambulating well, tolerating normal diet, breast-feeding without difficulty, and pain is adequately controlled. She reports bleeding is similar to normal menses. Peripartum Data Delivery Method: Section Procedures: Primary section complications: none 1: Gender: Male Disposition of : home Discharge Diagnosis (1) Diabetes mellitus affecting : Status: Acute (2) Obesity affecting : Status: Acute (3) delivery delivered: Status: Acute (4) hemorrhage: Status: Acute (5) Acute postoperative anemia due to expected blood loss: Status: Acute (6) Mother currently breast-feeding: Status: Acute Status at Discharge Cognitive/behavioral status at discharge: at baseline, oriented Functional status at discharge: independent ambulation Overall status at discharge: patient is progressing back to baseline Time Spent with Patient Time attestation: Total time spent providing and/or coordinating discharge services: 30 minutes Objective Labs 02/18/25 06:03 02/17/25 08:58 Labs: Laboratory Results - last 24 hr 02/17/25 02/17/25 02/17/25 13:57 14:51 15:57 WBC RBC Hgb Hct MCV MCH MCHC RDW Plt Count Neut % (Auto) Lymph % (Auto) [place] % (Auto) Eos % (Auto) Baso % (Auto) Neut # (Auto) Lymph # (Auto) [place] # (Auto) Eos # (Auto) Baso # (Auto) POC Whole Bld Glucose 82 142 H 129 H 02/17/25 02/17/25 02/18/25 17:34 20:52 06:03 WBC 21.0 H D RBC 3.44 L Hgb 10.0 L Hct 30.1 L MCV 87.5 MCH 29.1 MCHC 33.3 RDW 16.8 H Plt Count 201 Neut % (Auto) 81.9 H Lymph % (Auto) 9.2 L [place] % (Auto) 8.3 Eos % (Auto) 0.2 L Baso % (Auto) 0.4 Neut # (Auto) 51653 H Lymph # (Auto) 1900 [place] # (Auto) 1800 H Eos # (Auto) 100 Baso # (Auto) 100 POC Whole Bld Glucose 157 H 137 H 02/18/25 02/18/25 07:38 11:27 WBC RBC Hgb Hct MCV MCH MCHC RDW Plt Count Neut % (Auto) Lymph % (Auto) [place] % (Auto) Eos % (Auto) Baso % (Auto) Neut # (Auto) Lymph # (Auto) [place] # (Auto) Eos # (Auto) Baso # (Auto) POC Whole Bld Glucose 104 H 109 H Exam Vital Signs (past 8 hours): Oxygen Delivery Method Room Air Narrative Exam Narrative: General: Well-appearing, well-nourished, no distress HEENT: Moist mucous membranes, no pallor CV: Regular rate and rhythm, no murmur auscultated Resp: CTAB, comfortable work of breathing Abdomen: Soft, bowel sounds present, fundus firm below umbilicus with appropriate tenderness, incision clean/dry/intact with KIKE dressing in place Extremities: No edema, no calf tenderness or evidence of DVT Discharge Plan Discharge Plan Patient Disposition: Home Discharge orders & Medications Prescriptions: New acetaminophen 325 mg Tablet 650 mg PO Q6H PRN (Reason: pain) Qty: 90 0RF ferrous sulfate 325 mg (65 mg iron) Tablet 325 mg PO DAILY Qty: 60 0RF docusate sodium 100 mg Capsule 100 mg PO DAILY Qty: 30 0RF ibuprofen 600 mg Tablet 600 mg PO Q6H PRN (Reason: pain) Qty: 90 1RF Purelan Cream 1 applic topical PRN PRN (Reason: Skin protectant) Qty: 7 6RF polyethylene glycol 3350 17 gram/dose powder 17 g PO DAILY Qty: 510 1RF hydrocodone-acetaminophen 5-325 mg tablet See Rx Instructions .ROUTE .COMPLEX PRN (Reason: pain (scale score 7-10)) Qty: 15 0RF Rx Instructions: Take 1-2 tabs every 6 hours as needed for severe pain Continued vit-ferrous sulfat-FA 27 mg iron- 0.8 mg tablet PO Discontinued acetaminophen-caffeine 500-65 mg tablet 1 tab PO Q6H PRN (Reason: pain) Qty: 30 0RF acyclovir 400 mg tablet 400 mg PO TID Qty: 120 0RF Rx Instructions: Take 1 tab 3x daily starting at 36 weeks of Medication counseling provided by Pharmacist: No Follow up/Referrals: Wade Post MD [Primary Care Provider, [facility]] - 02/25/25 10:30 am Referral Note: 1 week follow up February 25, 2025 @ 10:30 [address] follow up with Dr. Post on April 01 @ 2pm Visit Report/Discharge Packet Stand Alone Forms: Discharge: Care, Patient Portal/API, Stroke Signs & Symptoms Discharge Data Primary Care Provider: Wade Post Discharges patient from system. Discharge Date/Time: 02/18/25 18:20
[2025-02-18 15:53] VITALS: BP 94/52; PULSE 89; RESP 16; TEMP 36.1
[2025-02-18 17:47] VITALS: BP 93/70; PULSE 890; RESP 14; TEMP 36.8
== END 2025-02-18 18:20 | disposition home or self-care (01) | DRG 787 ==
PROVIDERS: Admitting Provider Family Medicine; PCP Family Medicine; Referring Provider Family Medicine; Visit Provider Family Medicine
PROC: 10D00Z1 Extraction of Products of Conception, Low, Open Approach (ICD-10-PCS; CPT 59514; principal; 2025-02-17 14:00)
DX: O24.12 Pre-existing type 2 diabetes mellitus, in childbirth (principal); O90.81 Anemia of the puerperium; D62 Acute posthemorrhagic anemia; O72.1 Other immediate postpartum hemorrhage; O98.52 Other viral diseases complicating childbirth; O76 Abnormality in fetal heart rate and rhythm complicating labor and delivery; O64.8XX0 Obstructed labor due to other malposition and malpresentation, not applicable or unspecified; Z3A.38 38 weeks gestation of pregnancy; Z37.0 Single live birth; Z91.148 Patient's other noncompliance with medication regimen for other reason; O99.824 Streptococcus B carrier state complicating childbirth; B00.9 Herpesviral infection, unspecified; O99.214 Obesity complicating childbirth
CPT/HCPCS: 36415; 59050; 59200; 80048; 82962; 85025; 86850; 86900; 86901; A9270; G0379; J0690; J1200; J1815; J1885; J2274; J2300

== ENCOUNTER → 2025-07-11 15:12 | Outpatient (CLI) | payer OTHER, SELFPAY ==
[2025-07-11 17:06] LABS: Hematocrit 40.2 % (36-46); Hemoglobin 13.1 g/dL (12.0-16.0); Mean Corpuscular HGB Conc 32.7 % (30-36); Mean Corpuscular Hemoglobin 26.7 PG (26-34); Mean Corpuscular Volume 81.5 fL (80-100); Platelet Count 401 X10^3/uL (150-400)
[2025-07-11 17:43] LABS: Alanine Aminotransferase 41 IU/L (<35); Albumin 4.6 g/dL (3.5-5.0); Albumin Globulin Ratio 1.4 (1.0-2.8); Alkaline Phosphatase 166 U/L (38-126); Blood Urea Nitrogen 14 mg/dL (7-17); Calcium 10.2 mg/dL (8.4-10.2); Carbon Dioxide 27 mmol/L (22-32); Chloride 101 mmol/L (98-107); Cholesterol 159 mg/dL (140-199); Estimated Glomerular Filt Rate > 60 mL/min (>60); Globulin 3.4 g/dL (1.7-4.1); Glucose 167 mg/dL (70-99); HDL Cholesterol 55 mg/dL (40-60); HEMOLYSIS < 15 (0-50); Potassium 4.6 mmol/L (3.4-5.1); Sodium 138 mmol/L (137-145); Total Protein 8.0 g/dL (6.3-8.2); Triglycerides 65 mg/dL (35-150)
[2025-07-11 17:46] LABS: Microalbumi Creatinin Ratio Ur 16.0 ug/mg CR (<30)
[2025-07-11 18:55] LABS: Hemoglobin A1C% w Est Avg Glu 8.7 % (4.0-6.0)
== END ==
PROVIDERS: PCP Family Medicine; Referring Provider Family Medicine; Visit Provider Family Medicine
DX: E11.9 Type 2 diabetes mellitus without complications (principal); E66.9 Obesity, unspecified
CPT/HCPCS: 36415; 80053; 80061; 82043; 82570; 83036; 85027